=== PATIENT | female | born 1965 | race African-American/Black ===

== ENCOUNTER 2016-10-29 22:24 | Emergency (ER) | payer MEDICARE, OTHER ==
[2016-10-29] MEDS ORDERED: ACETAMINOPHEN/CODEINE #3 TABLET (BULK) As Ordered ONE (23:55)
[2016-10-29] MEDS ORDERED: AMOXICILLIN 500 MG CAP As Ordered ONE (23:55)
--- NOTE | 2016-10-30 00:53 | EDDOCDS ---
Physician Documentation [facility] Name: Chloé Harvey Age: 51 yrs Sex: Female : 1965 Arrival Date: 10/29/2016 Time: 22:24 Bed TR7 Private [facility]: [facility] Disposition: 10/29/16 23:48 Discharged to Home/Self Care. Impression: Fractured dental restorative material. - Condition is Stable. - Discharge Instructions: Dental Fracture. - Prescriptions for Amoxicillin 500 mg Oral Capsule - take 1 capsule by ORAL route every 8 hours for 10 days; 30 tablet. Tylenol- Codeine #3 300-30 mg Oral Tablet - take 2 tablets by ORAL route every 6 hours As needed MDD: 4 tabs; 26 tablet. - Medication Reconciliation, Local Pharmacy Hours, Dental Referral List form. - Follow up: [facility]; When: 2 - 3 days; Reason: Recheck today's complaints, Continuance of care. - Problem is new. - Symptoms have improved. Historical: - Allergies: Skelaxin (Rash); - Home Meds: 1. aspirin 81 mg Oral TbEC 1 tab nightly (Last dose: 10/28/2016) 2. [place] 5-325 mg Oral tab as needed (Last dose: 10/29/2016 20:00) 3. ibuprofen 200 mg Oral tab 2 tabs every 4-6 hours (Last dose: 10/29/2016 21:00) 4. atorvastatin oral 1 tab nightly (Last dose: 10/28/2016) 5. Lantus 45 units Sub-Q nightly (Last dose: 10/28/2016) 6. metformin 1,000 mg Oral tab daily (Last dose: 10/28/2016) 7. Vitamin D Oral 2000 unit daily (Last dose: 10/28/2016) 8. Zoloft 50 mg Oral tab 1 tab once daily (Last dose: 10/28/2016) - PMHx: Chronic Neck Pain; Diabetes - IDDM: uncontrolled; Hypercholesterolemia; Anxiety; Depression; - PSHx: Tubal ligation; - Social history: Smoking status: Patient states was never smoker of tobacco. No barriers to communication noted, The patient speaks fluent German, Speaks appropriately for age. - Family history: Not pertinent. - : The pt / caregiver states he / she is not on anticoagulants. Home medication list is obtained from the patient, [employer] import data. - Exposure Risk Screening:: None identified. 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 4 in. (162.56 cm); 22:26 Body Mass Index 27.81 (73.48 kg, 162.56 cm) bnb MDM: 23:44 Financial registration complete. zo 23:46 [facility] Payment Agreement was scanned into [employer] and attached to record. zo 23:53 Acetaminophen-Codeine, 4 pack- 300 mg-30 mg 1 packets PO once; Dispense with patient. ck7 Take per package instructions. ordered. 23:53 Amoxicillin 500 mg PO once ordered. ck7 Administered Medications: 23:45 Drug: Acetaminophen-Codeine, 4 pack- 1 packets [acetaminophen 300 mg-codeine 30 mg cz tablet (1 tabs)] {Co-Signature: km (Tatum Beckham RN).} Route: PO; 23:45 Drug: Amoxicillin 500 mg [amoxicillin 500 mg capsule (1 caps)] Route: PO; cz Signatures: Tatum Beckham, YOMAIRA RN kmg1 Daniele Stephens RN RN cz Shelley Smith Christopher, RPA-C RPA-Cck7 Tatum [email or web address] The chart was reviewed and I authenticate all verbal orders and agree with the evaluation and treatment provided.Attachments: 23:46 [facility] Payment Agreement zo MTDD
--- NOTE | 2016-10-30 00:53 | EDDOCDS ---
Nurse's Notes [facility] Name: Chloé Harvey Age: 51 yrs Sex: Female : 1965 Arrival Date: 10/29/2016 Time: 22:24 Bed TR7 Private [facility]: [facility] Diagnosis: Fractured dental restorative material Presentation: 10/29 22:30 Presenting complaint: Patient states: Chipped top left molar Sunday. Tonight having kmg1 severe pain. Adult Sepsis Screening: The patient does not have new or worsening altered mentation. Patient has a respiratory rate of greater than or equal to 22 (1 point). Systolic blood pressure is greater than 100. Patient has a qSOFA score of 1- Negative Sepsis Screen. Suicide/Homicide risk assessment- the patient denies having any suicidal and/or homicidal ideations and does not present with any other emotional, behavioral or mental health complaints. Status: Patient is not a customer service dispatcher or dependent. Transition of care: patient was not received from another setting of care. 22:30 Acuity: KIANNA Level 5 [facility] [place] 22:30 Method Of Arrival: Walkin/Carried/Asstd km Triage Assessment: 22:34 General: Appears uncomfortable, Behavior is appropriate for age, cooperative. Pain: km Location: upper left third molar Pain currently is 10 out of 10 on a pain scale. Quality of pain is described as sharp. HIV screening NA for this visit Offered previously. EENT: Reports pain in mouth. REGISTERED RADIATION THERAPIST: 22:34 LMP N/A - Post-menopause km Historical: - Allergies: Skelaxin (Rash); - Home Meds: 1. aspirin 81 mg Oral TbEC 1 tab nightly (Last dose: 10/28/2016) 2. [place] 5-325 mg Oral tab as needed (Last dose: 10/29/2016 20:00) 3. ibuprofen 200 mg Oral tab 2 tabs every 4-6 hours (Last dose: 10/29/2016 21:00) 4. atorvastatin oral 1 tab nightly (Last dose: 10/28/2016) 5. Lantus 45 units Sub-Q nightly (Last dose: 10/28/2016) 6. metformin 1,000 mg Oral tab daily (Last dose: 10/28/2016) 7. Vitamin D Oral 2000 unit daily (Last dose: 10/28/2016) 8. Zoloft 50 mg Oral tab 1 tab once daily (Last dose: 10/28/2016) - PMHx: Chronic Neck Pain; Diabetes - IDDM: uncontrolled; Hypercholesterolemia; Anxiety; Depression; - PSHx: Tubal ligation; - Social history: Smoking status: Patient states was never smoker of tobacco. No barriers to communication noted, The patient speaks fluent Colombian, Speaks appropriately for age. - Family history: Not pertinent. - : The pt / caregiver states he / she is not on anticoagulants. Home medication list is obtained from the patient, [employer] import data. - Exposure Risk Screening:: None identified. Screenin/16 00:50 Screening information is obtained from the patient. Fall risk: No risks identified. cz Assistance ADL's: requires no assistance with activities of daily living. Abuse/DV Screen: The patient / caregiver reports he/she is: not in a situation that causes fear, pain or injury. Nutritional screening: No deficits noted. home support is adequate. Assessment: 00:50 Reassessment: Patient appears in no apparent distress at this time. Vital Signs: 10/29 22:26 BP 154 / 67; Pulse 73; Resp 22; Temp 98.3; Pulse Ox 100% ; Weight 73.48 kg; Height 5 bnb ft. 4 in. (162.56 cm); 22:26 Body Mass Index 27.81 (73.48 kg, 162.56 cm) [facility] Vitals: 22:26 Log In Time: October 29, 2016 at 22:26. [facility] ED Course: 22:25 Patient visited by Chelsey Davis PCA. bnb 22:25 Patient moved to Waiting bnb 22:26 [facility], [facility] is Private Physician. bnb 22:28 Patient visited by Chelsey Davis PCA. bnb 22:31 Triage Initiated kmg1 22:36 Patient moved to Pre RCE cz 23:18 Patient moved to Triage 1 kmg1 23:32 [facility]C [facility] ck[facility] 23:32 Frank Sanchez DO is Attending Physician. ck7 23:32 Patient visited by Joaquin Sweet RPA-C. ck7 23:46 [facility] [place] Agreement was scanned into [employer] and attached to record. zo 23:47 [facility] is Referral Physician. ck7 23:57 Patient moved to 7 cz 10/30 00:50 The patient / caregiver is instructed regarding the plan of care and ED course. cz 00:50 No IV's were initiated during this patient's visit. No procedures done that require cz assistance. Administered Medications: 10/29 23:45 Drug: Acetaminophen-Codeine, 4 pack- 1 packets [acetaminophen 300 mg-codeine 30 mg cz tablet (1 tabs)] {Co-Signature: viki (Tatum Beckham RN).} Route: PO; 23:45 Drug: Amoxicillin 500 mg [amoxicillin 500 mg capsule (1 caps)] Route: PO; cz Order Results: There are currently no results for this order. Outcome: 23:48 Discharge ordered by Provider. [facility] 10/30 00:50 Discharge Assessment: Patient awake, alert and oriented x 3. No cognitive and/or cz functional deficits noted. Patient verbalized understanding of disposition instructions. patient administered narcotics - no. The following High Risk Discharge criteria are identified: None. Discharged to home ambulatory. Condition: stable. Discharge instructions given to patient, Instructed on discharge instructions, follow up and referral plans. medication usage, Demonstrated understanding of instructions, medications, Pt was receptive of discharge instructions/ teaching. Prescriptions given X 2. No special radiology studies were completed. Property :Personal belongings accompany Pt. 00:52 Patient left the ED. cz Signatures: Tatum Beckham, RN RN kmg1 Daniele Stephens, YOMAIRA RN Shelley Black Christopher, RPA-C RPA-Cck7 Chelsey Davis, BUSINESS INSURANCE AGENT BUSINESS INSURANCE AGENT bnb Tatum Beckham RN kmg1 MTDD
--- NOTE | 2016-11-01 01:53 | EDDOCDS ---
Physician Documentation [facility] Name: Chloé Harvey Age: 51 yrs Sex: Female : 1965 Arrival Date: 10/29/2016 Time: 22:24 Bed TR7 Private MD: [facility] Disposition: 10/29/16 23:48 Discharged to Home/Self Care. Impression: Fractured dental restorative material. - Condition is Stable. - Discharge Instructions: Dental Fracture. - Prescriptions for Amoxicillin 500 mg Oral Capsule - take 1 capsule by ORAL route every 8 hours for 10 days; 30 tablet. Tylenol- Codeine #3 300-30 mg Oral Tablet - take 2 tablets by ORAL route every 6 hours As needed MDD: 4 tabs; 26 tablet. - Medication Reconciliation, Local Pharmacy Hours, Dental Referral List form. - Follow up: [facility]; When: 2 - 3 days; Reason: Recheck today's complaints, Continuance of care. - Problem is new. - Symptoms have improved. Historical: - Allergies: Skelaxin (Rash); - Home Meds: 1. aspirin 81 mg Oral TbEC 1 tab nightly (Last dose: 10/28/2016) 2. [place] 5-325 mg Oral tab as needed (Last dose: 10/29/2016 20:00) 3. ibuprofen 200 mg Oral tab 2 tabs every 4-6 hours (Last dose: 10/29/2016 21:00) 4. atorvastatin oral 1 tab nightly (Last dose: 10/28/2016) 5. Lantus 45 units Sub-Q nightly (Last dose: 10/28/2016) 6. metformin 1,000 mg Oral tab daily (Last dose: 10/28/2016) 7. Vitamin D Oral 2000 unit daily (Last dose: 10/28/2016) 8. Zoloft 50 mg Oral tab 1 tab once daily (Last dose: 10/28/2016) - PMHx: Chronic Neck Pain; Diabetes - IDDM: uncontrolled; Hypercholesterolemia; Anxiety; Depression; - PSHx: Tubal ligation; - Social history: Smoking status: Patient states was never smoker of tobacco. No barriers to communication noted, The patient speaks fluent Malay, Speaks appropriately for age. - Family history: Not pertinent. - : The pt / caregiver states he / she is not on anticoagulants. Home medication list is obtained from the patient, [employer] import data. - Exposure Risk Screening:: None identified. 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 4 in. (162.56 cm); 22:26 Body Mass Index 27.81 (73.48 kg, 162.56 cm) bnb MDM: 23:44 Financial registration complete. zo 23:46 [facility] Payment Agreement was scanned into [employer] and attached to record. zo 23:53 Acetaminophen-Codeine, 4 pack- 300 mg-30 mg 1 packets PO once; Dispense with patient. ck7 Take per package instructions. ordered. 23:53 Amoxicillin 500 mg PO once ordered. ck7 10/30 12:02 T-Sheet-- Draft Copy was scanned into [employer] and attached to record. gb Administered Medications: 10/29 23:45 Drug: Acetaminophen-Codeine, 4 pack- 1 packets [acetaminophen 300 mg-codeine 30 mg cz tablet (1 tabs)] {Co-Signature: kmg1 (Tatum Beckham RN).} Route: PO; 23:45 Drug: Amoxicillin 500 mg [amoxicillin 500 mg capsule (1 caps)] Route: PO; cz Signatures: Tatum Beckham, RN RN kmg1 Daniele Stephens RN RN cz Soraida Vega, Reg Reg gb Shelley Smith Christopher, RPA-C RPA-Cck7 Tatum [email or web address] The chart was reviewed and I authenticate all verbal orders and agree with the evaluation and treatment provided.Attachments: :46 [facility] Payment Agreement zo 10/30 12:02 T-Sheet-- Draft Copy gb Chart Complete MTDD
--- NOTE | 2016-11-01 01:53 | EDDOCDS ---
Physician Documentation [facility] Name: Chloé Harvey Age: 51 yrs Sex: Female : 1965 Arrival Date: 10/29/2016 Time: 22:24 Bed TR7 Private MD: [facility] Disposition: 10/29/16 23:48 Discharged to Home/Self Care. Impression: Fractured dental restorative material. - Condition is Stable. - Discharge Instructions: Dental Fracture. - Prescriptions for Amoxicillin 500 mg Oral Capsule - take 1 capsule by ORAL route every 8 hours for 10 days; 30 tablet. Tylenol- Codeine #3 300-30 mg Oral Tablet - take 2 tablets by ORAL route every 6 hours As needed MDD: 4 tabs; 26 tablet. - Medication Reconciliation, Local Pharmacy Hours, Dental Referral List form. - Follow up: [facility]; When: 2 - 3 days; Reason: Recheck today's complaints, Continuance of care. - Problem is new. - Symptoms have improved. Historical: - Allergies: Skelaxin (Rash); - Home Meds: 1. aspirin 81 mg Oral TbEC 1 tab nightly (Last dose: 10/28/2016) 2. [place] 5-325 mg Oral tab as needed (Last dose: 10/29/2016 20:00) 3. ibuprofen 200 mg Oral tab 2 tabs every 4-6 hours (Last dose: 10/29/2016 21:00) 4. atorvastatin oral 1 tab nightly (Last dose: 10/28/2016) 5. Lantus 45 units Sub-Q nightly (Last dose: 10/28/2016) 6. metformin 1,000 mg Oral tab daily (Last dose: 10/28/2016) 7. Vitamin D Oral 2000 unit daily (Last dose: 10/28/2016) 8. Zoloft 50 mg Oral tab 1 tab once daily (Last dose: 10/28/2016) - PMHx: Chronic Neck Pain; Diabetes - IDDM: uncontrolled; Hypercholesterolemia; Anxiety; Depression; - PSHx: Tubal ligation; - Social history: Smoking status: Patient states was never smoker of tobacco. No barriers to communication noted, The patient speaks fluent Kazakh, Speaks appropriately for age. - Family history: Not pertinent. - : The pt / caregiver states he / she is not on anticoagulants. Home medication list is obtained from the patient, [employer] import data. - Exposure Risk Screening:: None identified. UPPER CASER: 10/29 22:34 LMP N/A - Post-menopause kmg1 Vital Signs: 22:26 BP 154 / 67; Pulse 73; Resp 22; Temp 98.3; Pulse Ox 100% ; Weight 73.48 kg / 162 lbs; bnb Height 5 ft. 4 in. (162.56 cm); 22:26 Body Mass Index 27.81 (73.48 kg, 162.56 cm) bnb MDM: 23:44 Financial registration complete. zo 23:46 [facility] Payment Agreement was scanned into [employer] and attached to record. zo 23:53 Acetaminophen-Codeine, 4 pack- 300 mg-30 mg 1 packets PO once; Dispense with patient. ck7 Take per package instructions. ordered. 23:53 Amoxicillin 500 mg PO once ordered. ck7 10/30 12:02 T-Sheet-- Draft Copy was scanned into [employer] and attached to record. gb Administered Medications: 10/29 23:45 Drug: Acetaminophen-Codeine, 4 pack- 1 packets [acetaminophen 300 mg-codeine 30 mg cz tablet (1 tabs)] {Co-Signature: kmg1 (Tatum Beckham RN).} Route: PO; 23:45 Drug: Amoxicillin 500 mg [amoxicillin 500 mg capsule (1 caps)] Route: PO; cz Signatures: Tatum Beckham, RN RN kmg1 Daniele Stephens RN RN cz Soraida Vega, Reg Reg gb Shelley Smith Christopher, RPA-C RPA-Cck7 Tatum [email or web address] The chart was reviewed and I authenticate all verbal orders and agree with the evaluation and treatment provided.Attachments: :46 [facility] Payment Agreement zo 10/30 12:02 T-Sheet-- Draft Copy gb Chart Complete MTDD
--- NOTE | 2016-11-01 01:53 | EDDOCDS ---
Nurse's Notes [facility] Name: Chloé Harvey Age: 51 yrs Sex: Female : 1965 Arrival Date: 10/29/2016 Time: 22:24 Bed TR7 Private MD: [facility] Diagnosis: Fractured dental restorative material Presentation: 10/29 22:30 Presenting complaint: Patient states: Chipped top left molar Sunday. Tonight having kmg1 severe pain. Adult Sepsis Screening: The patient does not have new or worsening altered mentation. Patient has a respiratory rate of greater than or equal to 22 (1 point). Systolic blood pressure is greater than 100. Patient has a qSOFA score of 1- Negative Sepsis Screen. Suicide/Homicide risk assessment- the patient denies having any suicidal and/or homicidal ideations and does not present with any other emotional, behavioral or mental health complaints. Status: Patient is not a food service or dependent. Transition of care: patient was not received from another setting of care. 22:30 Acuity: KIANNA Level 5 [facility] [place]:30 Method Of Arrival: Walkin/Carried/Asstd km Triage Assessment: 22:34 General: Appears uncomfortable, Behavior is appropriate for age, cooperative. Pain: km Location: upper left third molar Pain currently is 10 out of 10 on a pain scale. Quality of pain is described as sharp. HIV screening NA for this visit Offered previously. EENT: Reports pain in mouth. 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 aspirin 81 mg Oral TbEC 1 tab nightly (Last dose: 10/28/2016) 2. [place] 5-325 mg Oral tab as needed (Last dose: 10/29/2016 20:00) 3. ibuprofen 200 mg Oral tab 2 tabs every 4-6 hours (Last dose: 10/29/2016 21:00) 4. atorvastatin oral 1 tab nightly (Last dose: 10/28/2016) 5. Lantus 45 units Sub-Q nightly (Last dose: 10/28/2016) 6. metformin 1,000 mg Oral tab daily (Last dose: 10/28/2016) 7. Vitamin D Oral 2000 unit daily (Last dose: 10/28/2016) 8. Zoloft 50 mg Oral tab 1 tab once daily (Last dose: 10/28/2016) - PMHx: Chronic Neck Pain; Diabetes - IDDM: uncontrolled; Hypercholesterolemia; Anxiety; Depression; - PSHx: Tubal ligation; - Social history: Smoking status: Patient states was never smoker of tobacco. No barriers to communication noted, The patient speaks fluent Faroese, Speaks appropriately for age. - Family history: Not pertinent. - : The pt / caregiver states he / she is not on anticoagulants. Home medication list is obtained from the patient, [employer] import data. - Exposure Risk Screening:: None identified. Screenin/16 00:50 Screening information is obtained from the patient. Fall risk: No risks identified. cz Assistance ADL's: requires no assistance with activities of daily living. Abuse/DV Screen: The patient / caregiver reports he/she is: not in a situation that causes fear, pain or injury. Nutritional screening: No deficits noted. home support is adequate. Assessment: 00:50 Reassessment: Patient appears in no apparent distress at this time. Vital Signs: 10/29 22:26 BP 154 / 67; Pulse 73; Resp 22; Temp 98.3; Pulse Ox 100% ; Weight 73.48 kg; Height 5 bnb ft. 4 in. (162.56 cm); 22:26 Body Mass Index 27.81 (73.48 kg, 162.56 cm) [facility] Vitals: 22:26 Log In Time: October 29, 2016 at 22:26. [facility] ED Course: 22:25 Patient visited by Chelsey Davis PCA. bnb 22:25 Patient moved to Waiting bnb 22:26 [facility], Education [facility] is Private Physician. bnb 22:28 Patient visited by Chelsey Davis PCA. bnb 22:31 Triage Initiated kmg1 22:36 Patient moved to Pre RCE cz 23:18 Patient moved to Triage 1 kmg1 23:32 Joaquin Sweet RPA-C [facility] ck7 23:32 Frank Sanchez DO is Attending Physician. ck7 23:32 Patient visited by Joaquin Sweet RPA-C. ck7 23:46 [facility] [place] Agreement was scanned into [employer] and attached to record. zo 23:47 [facility] is Referral Physician. ck7 23:57 Patient moved to TR7 10/30 00:50 The patient / caregiver is instructed regarding the plan of care and ED course. cz 00:50 No IV's were initiated during this patient's visit. No procedures done that require cz assistance. 12:02 T-Sheet-- Draft Copy was scanned into [employer] and attached to record. gb Administered Medications: 10/29 23:45 Drug: Acetaminophen-Codeine, 4 pack- 1 packets [acetaminophen 300 mg-codeine 30 mg cz tablet (1 tabs)] {Co-Signature: kmg1 (Tatum Beckham RN).} Route: PO; 23:45 Drug: Amoxicillin 500 mg [amoxicillin 500 mg capsule (1 caps)] Route: PO; cz Order Results: There are currently no results for this order. Outcome: 23:48 Discharge ordered by Provider. [facility] 10/30 00:50 Discharge Assessment: Patient awake, alert and oriented x 3. No cognitive and/or cz functional deficits noted. Patient verbalized understanding of disposition instructions. patient administered narcotics - no. The following High Risk Discharge criteria are identified: None. Discharged to home ambulatory. Condition: stable. Discharge instructions given to patient, Instructed on discharge instructions, follow up and referral plans. medication usage, Demonstrated understanding of instructions, medications, Pt was receptive of discharge instructions/ teaching. Prescriptions given X 2. No special radiology studies were completed. Property :Personal belongings accompany Pt. 00:52 Patient left the ED. cz Signatures: Tatum Beckham, YOMAIRA RN kmg1 Daniele Stephens, YOMAIRA RN Soraida Garsia, Anastacio Reg Shelley Troy Christopher, RPA-C RPA-Cck7 Chelsey Davis, NASH PIPE INSTALLER bnb Tatum Beckham RN kmg1 Chart Complete MTDD
== END 2016-10-30 00:52 | disposition home or self-care (01) ==
LOC: M ED 22:24
DX: K08.539 Fractured dental restorative material, unspecified (principal); M54.2 Cervicalgia; E11.65 Type 2 diabetes mellitus with hyperglycemia; E78.00 Pure hypercholesterolemia, unspecified; F41.9 Anxiety disorder, unspecified; F32.9 Major depressive disorder, single episode, unspecified; Z79.84 Long term (current) use of oral hypoglycemic drugs; Z79.4 Long term (current) use of insulin; Z79.82 Long term (current) use of aspirin; Z79.899 Other long term (current) drug therapy; Z88.8 Allergy status to other drugs, medicaments and biological substances

== ENCOUNTER → 2016-11-06 | Outpatient (CLI) | payer MEDICARE, OTHER ==
[~2016-11-06] MED LIST: LIDOCAINE 1% MDV 20ML VIAL As Ordered ONE
--- NOTE | 2016-11-06 11:22 | REP ---
Digital diagnostic unilateral right breast mammography with CAD: Two views. History: Marker clip placement views post ultrasound-guided needle biopsy. Comparison mammography is from October 02, 2016, September 21, 2016. Findings: The marker clip is in good position adjacent to the nodular 1.1 cm density at 12 o'clock in the right breast. No significant breast hematoma is seen. No other change mammographically. Impression: Marker clip in good position. Signed by Henry Minor MD 11/06/2016 01:42 P
--- NOTE | 2016-11-06 12:00 | REP ---
FOCUSED RIGHT BREAST SONOGRAPHY: HISTORY: Palpable area on clinician breast exam subcutaneous nodule at 1 o'clock position 8 to 9 cm above the areola. Evaluate with ultrasound. The patient is separately referred for a needle biopsy of a previously identified ultrasound target at 12 o'clock position in the same right breast. SONOGRAPHIC FINDINGS: Scanning of the right breast from 12 o'clock position to the 2 o'clock position in the region of the palpable abnormality shows no sonographic abnormality. Slightly heterogeneous fibroglandular background echotexture is seen. IMPRESSION: BIRADS category 1 negative focused right breast ultrasound. Please note that a separately identified suspicious lesion is previously seen and is the target for ultrasound-guided needle biopsy also done on this date. Signed by Henry Minor MD 11/06/2016 01:43 P
--- NOTE | 2016-11-06 14:11 | REP ---
ULTRASOUND GUIDED RIGHT BREST BIOPSY: The procedure was performed under the direct supervision of Dr. Minor. The patient has a history of a hypoechoic slightly irregular shaped nodule at the 12 o'clock position measuring 0.7 x 0.7 x 0.6 cm seen on a previous ultrasound dated 10/02/2016. The risks and benefits of the procedure were explained to the patient and informed consent was obtained. The right breast nodule was localized using ultrasound guidance. The skin was prepped and draped in a sterile fashion. 1% Xylocaine was used as a local anesthetic. Using ultrasound guidance a 13 gauge suction assisted Mammotome needle was inserted and five core biopsy samples were obtained. A marker clip was placed at the biopsy site. The patient tolerated the procedure well and there were no immediate complications. After the appropriate amount of monitored convalescence the patient was discharged from the department. Reviewed by CHANELLE Alonzo 11/06/2016 05:17 PEdited and Signed by Henry iMnor MD 11/06/2016 05:34 P
== END ==
LOC: M RADPRO 09:22
PROVIDERS: ATTEND Surgery
DX: D24.1 Benign neoplasm of right breast (principal); E78.5 Hyperlipidemia, unspecified; E11.42 Type 2 diabetes mellitus with diabetic polyneuropathy; F32.9 Major depressive disorder, single episode, unspecified; F41.9 Anxiety disorder, unspecified; M62.81 Muscle weakness (generalized); Z86.73 Personal history of transient ischemic attack (TIA), and cerebral infarction without residual deficits; Z79.82 Long term (current) use of aspirin; Z79.4 Long term (current) use of insulin; Z79.84 Long term (current) use of oral hypoglycemic drugs; Z79.899 Other long term (current) drug therapy
CPT/HCPCS: 19083; 88305; G0206

== ENCOUNTER 2017-02-28 18:27 | Emergency (ER) | payer MEDICARE, MEDICAID ==
[~2017-02-28] VITALS: Ht 162.6 cm; Wt 70.8 kg
[2017-02-28] MEDS ORDERED: ASPI81CH PO (18:35)
[2017-02-28] MEDS ORDERED: GABA-283 PO (18:35)
[2017-02-28] MEDS ORDERED: VITA200015 PO (18:35)
[2017-02-28] MEDS ORDERED: CITA10TA5 PO (18:35)
[2017-02-28] MEDS ORDERED: LANTINJ4 SQ (18:35)
[2017-02-28] MEDS ORDERED: HYDR-3713 PO (18:35)
[2017-02-28] MEDS ORDERED: METF1000 PO (18:35)
[2017-02-28] MEDS ORDERED: ATOR1TAB21 PO (18:37)
[2017-02-28 20:21] LABS: BASO # 0.1 K/mm3 (0.0-0.2); BASO % 0.6 % (0.0-1.0); EOS # 0.3 K/mm3 (0.0-0.50); EOS % 3.1 % (0.0-3.0); LARGE UNSTAINED CELL # 0.3 K/mm3 (0.0-0.4); LARGE UNSTAINED CELL % 2.5 % (0.0-4.0); LYMPH # 4.3 K/mm3 (1.5-4.5); LYMPH % 38.6 % (24.0-44.0); MEAN CORPUSCULAR HEMOGLOBIN 28.5 pg (27.0-33.0); MEAN CORPUSCULAR HGB CONC 31.9 g/dl (32.0-36.5); MEAN CORPUSCULAR VOLUME 89.4 fl (80.0-96.0); MONO # 0.5 K/mm3 (0.0-0.8); MONO % 4.8 % (0.0-5.0); NEUTROPHILS # 5.3 K/mm3 (1.8-7.7); NEUTROPHILS % 50.5 % (36.0-66.0); PLATELET COUNT, AUTOMATED 354 k/mm3 (150-450); RED CELL DISTRIBUTION WIDTH 13.2 % (11.5-14.5); WHITE BLOOD COUNT 10.4 K/mm3 (4.0-10.0)
--- NOTE | 2017-02-28 20:50 | REPUSA ---
CLINICAL HISTORY: Pain. COMMENTS: Real time sonography with duplex doppler was performed with attention to the major deep venous struct ures. Evaluation reveals the common femoral, superficial femoral, popliteal and posterior tibial veins to be completely compressible without intraluminal thrombus. There is normal spontaneous phasic flow and augmentation in all deep veins. The greater saphenous/common femoral vein junction is patent. IMPRESSION: No evidence of DVT. Thank you for your kind referral of this patient.
[2017-02-28 21:56] LABS: ANION GAP 5 MEQ/L (8-16); BLOOD UREA NITROGEN 11 MG/DL (7-18); CARBON DIOXIDE LEVEL 31 MEQ/L (21-32); CHLORIDE LEVEL 106 MEQ/L (98-107); CREATININE FOR GFR 0.93 MG/DL (0.55-1.02); GLOMERULAR FILTRATION RATE > 60.0 (>51); GLUCOSE, FASTING 251 MG/DL (70-105); POTASSIUM SERUM 4.1 MEQ/L (3.5-5.1); SODIUM LEVEL 142 MEQ/L (136-145)
[2017-02-28] MEDS ORDERED: NS 1,000 ML IV ONE (22:15)
[2017-02-28] MEDS ORDERED: ISOVUE-370 76% 100ML VIAL (Q9967) As Ordered ONE (22:59)
[2017-02-28] MEDS ORDERED: ACETAMINOPHEN TAB 650MG DOSE (2X325MG) PO ONE (23:00)
--- NOTE | 2017-02-28 23:40 | REPUSA ---
CT angiogram of the chest Clinical statement: Chest pain and shortness of breath. Technique: Multiple axial CT images were obtained from the thoracic inlet through the upper abdomen a fter a bolus administration of nonionic intravenous contrast. Coronal and sagittal reconstructions we re also obtained. Comparison: 01/27/2013. Findings: The pulmonary arteries are well-opacified with contrast, with no intraluminal filling defec ts to suggest embolism. The thoracic aorta is unremarkable. Thyroid gland is within normal limits. Th ere is no thoracic lymphadenopathy. There are no pericardial or pleural effusions. The lungs are bob r. Limited imaging of the upper abdomen is unremarkable. There are no suspicious osseous lesions. Impression: Unremarkable CT examination of the chest. No evidence of pulmonary embolism.
[2017-02-28 23:59] VITALS: BP 121/71
--- NOTE | 2017-03-01 08:17 | ECGEPIP ---
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 Order Number: [id number] Reading MD: Susan Pichardo Measurements Intervals [place] Rate: 74 P: 6 GA: 128 QRS: -15 QRSD: 92 T: -1 QT: 400 QTc: 446 Interpretive Statements SINUS RHYTHM MODERATE VOLTAGE CRITERIA FOR LVH, CONSIDER NORMAL VARIANT INCREASED RATE 11/17/13 Electronically Signed On 03-01-2017 8:17:41 EDT by Susan Pichardo
== END 2017-03-01 00:06 | disposition home or self-care (01) ==
LOC: M ED 19:42
DX: M54.32 Sciatica, left side (principal); G89.29 Other chronic pain; E11.9 Type 2 diabetes mellitus without complications; Z79.4 Long term (current) use of insulin; Z79.82 Long term (current) use of aspirin; Z79.899 Other long term (current) drug therapy; Z87.891 Personal history of nicotine dependence
CPT/HCPCS: 36415; 71275; 80048; 85025; 85379; 93005; 93971; 99284; Q9967

== ENCOUNTER → 2017-03-02 | Outpatient (REF) | payer MEDICARE, MEDICAID ==
[~2017-03-02] MED LIST changes: +ASPI81CH PO; +ATOR1TAB21 PO; +CITA10TA5 PO; +GABA-283 PO; +HYDR-3713 PO; +LANTINJ4 SQ; -LIDOCAINE 1% MDV 20ML VIAL As Ordered ONE; +METF1000 PO; +VITA200015 PO
== END ==
LOC: M SFHCPLAZ 13:51
DX: E11.9 Type 2 diabetes mellitus without complications (principal); E78.5 Hyperlipidemia, unspecified
CPT/HCPCS: 36415; 80061; 82043; 83036; G0463

== ENCOUNTER → 2017-03-06 | Outpatient (REF) | payer MEDICARE, MEDICAID | LOC: M SFHCPLAZ 10:07 | PROVIDERS: ATTEND Family Medicine | DX: A59.9 Trichomoniasis, unspecified (principal); Z79.899 Other long term (current) drug therapy ==

== ENCOUNTER → 2017-04-26 | Outpatient (CLI) | payer MEDICARE, MEDICAID ==
[~2017-04-26] MED LIST changes: +INSUH10VL SC; +KETO10TAB PO; +LOSA25TA8 PO; -METF1000 PO; +METF10004 PO; +NAPR500T3 PO; +PRED20TA PO; +ROBA500T PO
[2017-04-26 12:00] LABS: TOTAL PROTEIN 7.3 GM/DL (6.4-8.2)
[2017-04-26 12:02] LABS: VITAMIN B12 LEVEL 687 PG/ML
[2017-04-30 10:30] LABS: ALBUMIN 4.36 GM/DL (3.29-5.55); ALBUMIN % 59.7 % (55.8-66.1); GAMMA GLOBULIN % 14.5 % (11.1-18.8)
== END ==
LOC: M LAB 10:38
PROVIDERS: ATTEND Psychiatry & Neurology Neurology
DX: E11.9 Type 2 diabetes mellitus without complications (principal); G62.9 Polyneuropathy, unspecified; T56.0X4A Toxic effect of lead and its compounds, undetermined, initial encounter; T56.894A Toxic effect of other metals, undetermined, initial encounter; X58.XXXA Exposure to other specified factors, initial encounter; Y92.9 Unspecified place or not applicable

== ENCOUNTER 2017-05-03 21:46 | Emergency (ER) | payer MEDICARE, MEDICAID ==
[~2017-05-03] VITALS: Ht 162.6 cm; Wt 72.7 kg
[~2017-05-03 21:46] MED LIST changes: -INSUH10VL SC; -KETO10TAB PO; -LOSA25TA8 PO; -NAPR500T3 PO; -PRED20TA PO; -ROBA500T PO
[2017-05-03 21:47] VITALS: BP 117/68
[2017-05-03] MEDS ORDERED: INSUH10VL SC (22:01)
[2017-05-03] MEDS ORDERED: ASPIRIN 325 MG TAB PO ONE (22:30)
[2017-05-03] MEDS ORDERED: KETOROLAC 30 MG/ML VIAL (J1885) IV ONE (22:30)
[2017-05-03 23:04] LABS: BASO % 0.5 % (0.0-1.0); EOS # 0.2 K/mm3 (0.0-0.50); EOS % 2.1 % (0.0-3.0); LARGE UNSTAINED CELL # 0.2 K/mm3 (0.0-0.4); LARGE UNSTAINED CELL % 2.5 % (0.0-4.0); LYMPH # 3.1 K/mm3 (1.5-4.5); LYMPH % 34.8 % (24.0-44.0); MEAN CORPUSCULAR HEMOGLOBIN 29.1 pg (27.0-33.0); MEAN CORPUSCULAR HGB CONC 32.7 g/dl (32.0-36.5); MEAN CORPUSCULAR VOLUME 88.8 fl (80.0-96.0); MONO # 0.5 K/mm3 (0.0-0.8); MONO % 5.4 % (0.0-5.0); NEUTROPHILS # 4.6 K/mm3 (1.8-7.7); NEUTROPHILS % 54.8 % (36.0-66.0); PLATELET COUNT, AUTOMATED 344 k/mm3 (150-450); RED CELL DISTRIBUTION WIDTH 13.6 % (11.5-14.5); WHITE BLOOD COUNT 8.3 K/mm3 (4.0-10.0)
[2017-05-03 23:12] LABS: INR 0.92
[2017-05-03 23:30] LABS: ANION GAP 4 MEQ/L (8-16); BLOOD UREA NITROGEN 11 MG/DL (7-18); CALCIUM LEVEL 9.2 MG/DL (8.5-10.1); CARBON DIOXIDE LEVEL 30 MEQ/L (21-32); CHLORIDE LEVEL 110 MEQ/L (98-107); CREATININE FOR GFR 0.95 MG/DL (0.55-1.02); GLOMERULAR FILTRATION RATE > 60.0 (>51); GLUCOSE, FASTING 98 MG/DL (70-105); POTASSIUM SERUM 4.1 MEQ/L (3.5-5.1); SODIUM LEVEL 144 MEQ/L (136-145)
[2017-05-04] MEDS ORDERED: MORPHINE 4 MG/ML 1ML SYRINGE IV ONE (02:30)
[2017-05-04] MEDS ORDERED: ISOVUE-370 76% 100ML VIAL (Q9967) As Ordered ONE (02:32)
--- NOTE | 2017-05-04 03:10 | REPUSA ---
CLINICAL HISTORY: Dyspnea, elevated d-dimers, exclude PE. TECHNIQUE: Multiple incremental axial, coronal and oblique images are obtained from the thoracic inle t to the upper abdomen. Intravenous contrast material was administered as per pulmonary embolism prot ocol. COMMENTS: There is excellent opacification of pulmonary arterial system without evidence for pulmonary embolism . Aorta is of normal caliber without evidence for dissection or aneurysm. There is no evidence of pleural or parenchymal mass. There are no pleural effusions. There is no evid ence of hilar or mediastinal lymphadenopathy. The heart and great vessels are within normal limits. B ilateral basilar atelectatic pulmonary changes. Images of the upper abdomen demonstrate no evidence of adrenal mass. The bony structures are free of lytic or blastic lesions. IMPRESSION: No evidence for pulmonary embolism. Bilateral basilar atelectatic pulmonary changes. No change from the prior exam of 02/28/2017. Thank you for your kind referral of this patient.
[2017-05-04] MEDS ORDERED: KETO10TAB PO (03:46)
--- NOTE | 2017-05-04 07:39 | ECGEPIP ---
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
--- NOTE | 2017-05-04 07:40 | ECGEPIP ---
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
--- NOTE | 2017-05-04 07:54 | REP ---
PA and lateral chest: Comparison is 04/26/2016. The lung cheney are clear. The cardiac size is normal The ivanna, mediastinum, and bony thorax are unremarkable. Impression: Negative PA and lateral chest. There is no interval change. Signed by Christopher Johnson MD 05/04/2017 07:46 A
== END 2017-05-04 04:03 | disposition home or self-care (01) ==
LOC: M ED 21:46
DX: M94.0 Chondrocostal junction syndrome [Tietze] (principal); E11.9 Type 2 diabetes mellitus without complications; I10 Essential (primary) hypertension; E78.5 Hyperlipidemia, unspecified; Z88.8 Allergy status to other drugs, medicaments and biological substances; Z79.82 Long term (current) use of aspirin; Z79.4 Long term (current) use of insulin; Z79.899 Other long term (current) drug therapy; Z79.84 Long term (current) use of oral hypoglycemic drugs
CPT/HCPCS: 71020; 71275; 80048; 82550; 82553; 84484; 85025; 85610; 85730; 93005; 96374; 96375; 99283; J1885; Q9967

== ENCOUNTER 2017-08-08 15:00 | Emergency (ER) | payer MEDICARE, MEDICAID ==
[~2017-08-08] VITALS: Ht 162.6 cm; Wt 75.0 kg
[~2017-08-08 15:00] MED LIST changes: +INSUH10VL SC; +KETO10TAB PO
[2017-08-08] MEDS ORDERED: LOSA25TA8 PO (15:20)
[2017-08-08] MEDS ORDERED: ACETAMINOPHEN 325 MG TAB PO ONE (16:15)
[2017-08-08] MEDS ORDERED: NAPR500T3 PO (16:21)
[2017-08-08] MEDS ORDERED: ROBA500T PO (16:21)
[2017-08-08] MEDS ORDERED: PRED20TA PO (16:21)
--- NOTE | 2017-08-08 16:48 | REP ---
AP pelvis and left hip: AP pelvis: There are no comparisons. Mineralization is normal. The sacroiliac articulations and hip articulations are unremarkable. There is a calcification in the pelvis on the left, nonspecific, ureteral versus phlebolith. Impression: Pelvic calcification on the left, otherwise negative AP pelvis. Left hip two views: Mineralization and joint space are normal. There is no femoral head deformity. No calcifications or foreign bodies. No fracture or dislocation. Essentially negative left hip. If symptoms persist or worsen, consider MRI. Signed by Christopher Johnson MD 08/08/2017 04:37 P
[2017-08-08 17:10] VITALS: BP 130/70
== END 2017-08-08 17:19 | disposition home or self-care (01) ==
LOC: M ED 15:00
DX: M76.32 Iliotibial band syndrome, left leg (principal); E11.9 Type 2 diabetes mellitus without complications; I25.10 Atherosclerotic heart disease of native coronary artery without angina pectoris; I10 Essential (primary) hypertension; E78.5 Hyperlipidemia, unspecified; M54.9 Dorsalgia, unspecified; F41.9 Anxiety disorder, unspecified; F32.9 Major depressive disorder, single episode, unspecified; Z86.73 Personal history of transient ischemic attack (TIA), and cerebral infarction without residual deficits; Z87.891 Personal history of nicotine dependence; Z79.82 Long term (current) use of aspirin; Z79.4 Long term (current) use of insulin; Z79.899 Other long term (current) drug therapy; Z88.8 Allergy status to other drugs, medicaments and biological substances

== ENCOUNTER → 2017-09-16 | Outpatient (CLI) | payer MEDICARE, MEDICAID ==
[~2017-09-16] MED LIST changes: +LOSA25TA8 PO; +NAPR500T3 PO; +PRED20TA PO; +ROBA500T PO
[2017-09-16 17:56] LABS: ALBUMIN 3.7 GM/DL (3.2-5.2); ALBUMIN/GLOBULIN RATIO 1.16 (1.00-1.93); ALKALINE PHOSPHATASE 117 U/L (45-117); ALT/SGPT 25 U/L (12-78); ANION GAP 4 MEQ/L (8-16); AST/SGOT 19 U/L (7-37); BILIRUBIN,TOTAL 0.2 MG/DL (0.2-1.0); BLOOD UREA NITROGEN 10 MG/DL (7-18); CALCIUM LEVEL 9.1 MG/DL (8.5-10.1); CARBON DIOXIDE LEVEL 31 MEQ/L (21-32); CHLORIDE LEVEL 107 MEQ/L (98-107); CREATININE FOR GFR 1.05 MG/DL (0.55-1.02); GLOMERULAR FILTRATION RATE > 60.0 (>51); GLUCOSE, FASTING 285 MG/DL (70-105); POTASSIUM SERUM 4.9 MEQ/L (3.5-5.1); SODIUM LEVEL 142 MEQ/L (136-145); TOTAL PROTEIN 6.9 GM/DL (6.4-8.2)
[2017-09-16 18:16] LABS: BASO # 0.1 10^3/uL (0.0-0.2); BASO % 0.7 % (0.0-1.0); EOS # 0.1 10^3/uL (0.0-0.50); EOS % 1.9 % (0.0-3.0); IMMATURE GRANULOCYTE % 0.3 % (0-0); LYMPH # 2.5 10^3/uL (1.5-4.5); LYMPH % 36.4 % (24.0-44.0); MEAN CORPUSCULAR HEMOGLOBIN 29.1 pg (27.0-33.0); MEAN CORPUSCULAR HGB CONC 32.2 g/dl (32.0-36.5); MEAN CORPUSCULAR VOLUME 90.4 fl (80.0-96.0); MONO # 0.6 10^3/uL (0.0-0.8); NEUTROPHILS # 3.6 10^3/uL (1.8-7.7); NEUTROPHILS % 51.7 % (36.0-66.0); PLATELET COUNT, AUTOMATED 294 10^3/uL (150-450); RED CELL DISTRIBUTION WIDTH 13.5 % (11.5-14.5); WHITE BLOOD COUNT 6.9 10^3/uL (4.0-10.0)
== END ==
LOC: M WUC 12:19
PROVIDERS: ATTEND Physician Assistant
DX: L04.0 Acute lymphadenitis of face, head and neck (principal)

== ENCOUNTER → 2017-09-21 | Outpatient (REF) | payer MEDICARE, MEDICAID ==
[~2017-09-21] MED LIST changes: +ALEV220C2 PO; +AMOX400S2; +ATOR80TA59 PO; +AUGM875T28 PO; +CIPR-249 PO; +CIPRODEX AD; +CLOB0.0548 TOP; +INSULANT SC; +MECL-68 PO; +NORC1TAB4 PO; +PANT40TA2 PO; +VITA100066 PO; +[UNRECOGNIZED DRUG - CODE]; +[UNRECOGNIZED DRUG - CODE] PO
== END ==
LOC: M LAB REF 17:20
PROVIDERS: ATTEND Physical Medicine & Rehabilitation
DX: M47.26 Other spondylosis with radiculopathy, lumbar region (principal)

== ENCOUNTER 2017-09-22 11:04 | Emergency (ER) | payer MEDICARE, MEDICAID ==
[~2017-09-22] VITALS: Ht 162.6 cm; Wt 72.6 kg
[~2017-09-22 11:04] MED LIST changes: -ALEV220C2 PO; -AMOX400S2; -ATOR80TA59 PO; -AUGM875T28 PO; -CIPR-249 PO; -CIPRODEX AD; -CLOB0.0548 TOP; -INSULANT SC; -MECL-68 PO; -NORC1TAB4 PO; -PANT40TA2 PO; -VITA100066 PO; -[UNRECOGNIZED DRUG - CODE]; -[UNRECOGNIZED DRUG - CODE] PO
[2017-09-22] MEDS ORDERED: ALEV220C2 PO (11:19)
[2017-09-22] MEDS ORDERED: [UNRECOGNIZED DRUG - CODE] (11:19)
[2017-09-22] MEDS ORDERED: AMOX400S2 (11:19)
[2017-09-22] MEDS ORDERED: ACETAMINOPH W/CODEINE #3 TAB UD PO ONE (12:15)
[2017-09-22] MEDS ORDERED: KETOROLAC 30 MG/ML VIAL (J1885) IV ONE (12:15)
[2017-09-22] MEDS ORDERED: MORPHINE 2 MG/ML 1ML SYRINGE IV ONE (12:15)
[2017-09-22 12:34] LABS: BASO # 0.1 10^3/uL (0.0-0.2); BASO % 0.9 % (0.0-1.0); EOS # 0.1 10^3/uL (0.0-0.50); EOS % 1.2 % (0.0-3.0); IMMATURE GRANULOCYTE % 0.2 % (0-0); LYMPH # 2.7 10^3/uL (1.5-4.5); LYMPH % 40.8 % (24.0-44.0); MEAN CORPUSCULAR HEMOGLOBIN 28.8 pg (27.0-33.0); MEAN CORPUSCULAR HGB CONC 32.6 g/dl (32.0-36.5); MEAN CORPUSCULAR VOLUME 88.4 fl (80.0-96.0); MONO # 0.7 10^3/uL (0.0-0.8); MONO % 11.2 % (0.0-5.0); NEUTROPHILS % 45.7 % (36.0-66.0); PLATELET COUNT, AUTOMATED 364 10^3/uL (150-450); RED CELL DISTRIBUTION WIDTH 13.3 % (11.5-14.5); WHITE BLOOD COUNT 6.6 10^3/uL (4.0-10.0)
[2017-09-22 13:02] LABS: ALBUMIN 4.1 GM/DL (3.2-5.2); ALBUMIN/GLOBULIN RATIO 1.08 (1.00-1.93); ALKALINE PHOSPHATASE 112 U/L (45-117); ALT/SGPT 43 U/L (12-78); ANION GAP 6 MEQ/L (8-16); AST/SGOT 35 U/L (7-37); BILIRUBIN,TOTAL 0.3 MG/DL (0.2-1.0); BLOOD UREA NITROGEN 11 MG/DL (7-18); CALCIUM LEVEL 9.2 MG/DL (8.5-10.1); CARBON DIOXIDE LEVEL 29 MEQ/L (21-32); CHLORIDE LEVEL 108 MEQ/L (98-107); CREATININE FOR GFR 0.91 MG/DL (0.55-1.02); GLOMERULAR FILTRATION RATE > 60.0 (>51); GLUCOSE, FASTING 150 MG/DL (70-105); POTASSIUM SERUM 4.2 MEQ/L (3.5-5.1); SODIUM LEVEL 143 MEQ/L (136-145); TOTAL PROTEIN 7.9 GM/DL (6.4-8.2)
[2017-09-22] MEDS ORDERED: ISOVUE-370 76% 100ML VIAL (Q9967) As Ordered ONE (13:16)
--- NOTE | 2017-09-22 14:25 | REP ---
REASON: Right ear infection. COMPARISON: None. The ossicles are intact bilaterally. The attic ad antrum are clear bilaterally. The scutum is sharp. The tympanic membrane is intact bilaterally. There is no abnormal TM retraction. The semicircular canals and cochlea are normal bilaterally. The internal auditory canals are normal. The external auditory canal is clear bilaterally. The tegmen and tegmentum are intact. There is no abnormal bony sclerosis or lysis. The mastoid air cells are clear bilaterally. IMPRESSION: Normal bilateral exam. Signed by Clyde Sy DO 09/22/2017 02:33 P
[2017-09-22] MEDS ORDERED: CEFTRIAXONE SOD 1 GM in APPROPRIATE DILUENT 1 EA IV ONE (15:00)
[2017-09-22] MEDS ORDERED: MECL-68 PO (15:01)
[2017-09-22] MEDS ORDERED: AUGM875T28 PO (15:01)
[2017-09-22] MEDS ORDERED: MECLIZINE 25 MG TABLET PO ONE (15:15)
[2017-09-22] MEDS ORDERED: ONDANSETRON 4 MG ORAL DISINTEGRATING TAB (S0181) PO ONE (15:15)
[2017-09-22 15:40] VITALS: BP 133/79
== END 2017-09-22 15:52 | disposition home or self-care (01) ==
LOC: M ED 11:04
DX: L03.90 Cellulitis, unspecified (principal); R42 Dizziness and giddiness; Z86.73 Personal history of transient ischemic attack (TIA), and cerebral infarction without residual deficits; E78.00 Pure hypercholesterolemia, unspecified; I10 Essential (primary) hypertension; E11.9 Type 2 diabetes mellitus without complications; M54.9 Dorsalgia, unspecified; F41.9 Anxiety disorder, unspecified; F32.9 Major depressive disorder, single episode, unspecified; Z79.82 Long term (current) use of aspirin; Z79.4 Long term (current) use of insulin; Z79.899 Other long term (current) drug therapy; Z88.8 Allergy status to other drugs, medicaments and biological substances
CPT/HCPCS: 70481; 80053; 85025; 96374; 96375; 99284; J1885; Q9967

== ENCOUNTER 2017-09-25 01:38 | Observation (INO) | payer MEDICARE, MEDICAID ==
[~2017-09-25] VITALS: Ht 162.6 cm; Wt 81.8 kg
[~2017-09-25 01:38] MED LIST changes: +ALEV220C2 PO; +AMOX400S2; +AUGM875T28 PO; +MECL-68 PO; +[UNRECOGNIZED DRUG - CODE]
[2017-09-25] MEDS ORDERED: CIPROFLOXACIN 400 MG in APPROPRIATE DILUENT 1 EA IV ONE (02:30)
[2017-09-25] MEDS ORDERED: METOCLOPRAMIDE INJ 10MG/2ML VIAL (J2765) IV ONE (02:30)
[2017-09-25] MEDS ORDERED: LORazepam 2 MG/ML VIAL (J2060) IV STA (02:30)
[2017-09-25] MEDS ORDERED: CIPRODEX OTIC SUSP 7.5ML AD ONE (02:30)
[2017-09-25] MEDS ORDERED: NS 1,000 ML IV ONE (02:30)
[2017-09-25 03:05] LABS: VENOUS BASE EXCESS 1.4 (-2.0-2.0); VENOUS O2 SATURATION 91.8 % (60.0-80.0); VENOUS PARTIAL PRESSURE CO2 39.6 mmHg (38.0-50.0); VENOUS PARTIAL PRESSURE O2 62.5 mmHg (30.0-50.0); VENOUS STANDARD HCO3 25.6 MEQ/L
[2017-09-25 03:36] LABS: ALBUMIN 3.9 GM/DL (3.2-5.2); ALBUMIN/GLOBULIN RATIO 1.22 (1.00-1.93); ALKALINE PHOSPHATASE 103 U/L (45-117); ALT/SGPT 43 U/L (12-78); ANION GAP 10 MEQ/L (8-16); AST/SGOT 44 U/L (7-37); BILIRUBIN,DIRECT < 0.1 MG/DL (0.0-0.2); BILIRUBIN,TOTAL 0.4 MG/DL (0.2-1.0); BLOOD UREA NITROGEN 8 MG/DL (7-18); CALCIUM LEVEL 8.9 MG/DL (8.5-10.1); CARBON DIOXIDE LEVEL 26 MEQ/L (21-32); CHLORIDE LEVEL 108 MEQ/L (98-107); CREATININE FOR GFR 0.86 MG/DL (0.55-1.02); GLOMERULAR FILTRATION RATE > 60.0 (>51); GLUCOSE, FASTING 184 MG/DL (70-105); POTASSIUM SERUM 3.9 MEQ/L (3.5-5.1); SODIUM LEVEL 144 MEQ/L (136-145); TOTAL PROTEIN 7.1 GM/DL (6.4-8.2)
[2017-09-25 03:47] LABS: BASO # 0.1 10^3/uL (0.0-0.2); BASO % 0.7 % (0.0-1.0); EOS # 0.1 10^3/uL (0.0-0.50); EOS % 1.6 % (0.0-3.0); IMMATURE GRANULOCYTE % 0.2 % (0-0); LYMPH # 3.5 10^3/uL (1.5-4.5); LYMPH % 41.6 % (24.0-44.0); MEAN CORPUSCULAR HEMOGLOBIN 29.1 pg (27.0-33.0); MEAN CORPUSCULAR HGB CONC 32.9 g/dl (32.0-36.5); MEAN CORPUSCULAR VOLUME 88.6 fl (80.0-96.0); MONO # 0.8 10^3/uL (0.0-0.8); MONO % 9.8 % (0.0-5.0); NEUTROPHILS # 3.8 10^3/uL (1.8-7.7); NEUTROPHILS % 46.1 % (36.0-66.0); PLATELET COUNT, AUTOMATED 254 10^3/uL (150-450); RED CELL DISTRIBUTION WIDTH 13.2 % (11.5-14.5); WHITE BLOOD COUNT 8.3 10^3/uL (4.0-10.0)
[2017-09-25] MEDS ORDERED: GLUCAGON FOR INJ 1 MG VIAL (J1610) SC PRN (05:00)
[2017-09-25] MEDS ORDERED: ACETAMINOPHEN TAB 650MG DOSE (2X325MG) PO PRN (05:00)
[2017-09-25] MEDS ORDERED: GLUCOSE 4 GM CHEW TABLET PO PRN (05:00)
[2017-09-25] MEDS ORDERED: DEXTROSE 50% 50 ML SYRINGE IV PRN (05:00)
[2017-09-25] MEDS ORDERED: CLOB0.0548 TOP (05:17)
[2017-09-25] MEDS ORDERED: ATOR80TA59 PO (05:17)
[2017-09-25] MEDS ORDERED: [UNRECOGNIZED DRUG - CODE] PO (05:17)
[2017-09-25] MEDS ORDERED: INSUH10VL SC (05:17)
[2017-09-25] MEDS ORDERED: AUGM875T28 PO (05:17)
[2017-09-25] MEDS ORDERED: ASPI81CH PO (05:17)
[2017-09-25] MEDS ORDERED: METF10004 PO (05:17)
[2017-09-25] MEDS ORDERED: LOSA25TA8 PO (05:17)
[2017-09-25] MEDS ORDERED: MECL-68 PO (05:17)
[2017-09-25] MEDS ORDERED: VITA100066 PO (05:17)
[2017-09-25] MEDS ORDERED: NORC1TAB4 PO (05:17)
[2017-09-25] MEDS ORDERED: INSULANT SC (05:17)
[2017-09-25 06:00] VITALS: BP 105/65
--- NOTE | 2017-09-25 06:02 | HPE ---
DATE OF ADMISSION: 09/25/2017 PRIMARY CARE PROVIDER: Dr. Javier HISTORY OF PRESENT ILLNESS: This is a 52-year-old female with a past medical history significant for insulin-dependent diabetes, history of transient ischemic attack (TIA), hyperlipidemia, diabetic neuropathy, depression, low back pain who came to [facility] on September 25, 2017 for persistent right ear pain. The patient stated approximately one week ago the patient started having severe pain in the right ear and she also noted she had dizziness associated with the ear pain. The patient went to urgent care approximately seven days ago and the patient received amoxicillin; however the patient's symptoms continued to get worse even after five days of treatment and the patient started to have persistent dizziness. The patient described the dizziness as though she was behaving like a drunk person. She felt the room was spinning. The patient also started to have nausea and vomiting secondary to persistent dizziness. The patient also started to have intermittent double vision for the last three days. No ear discharge. Therefore, the patient called her primary care provider on September 24, 2017 and the patient was told to come to [facility] Emergency room for further evaluation. PAST MEDICAL HISTORY: 1. History of TIAs. 2. Insulin-dependent diabetes. 3. Dyslipidemia. 4. Depression. 5. Chronic lower back pain. 6. Spondylosis cervical and lumbar regions. PAST SURGICAL HISTORY: Tubal ligation. SOCIAL HISTORY: Denies smoking, denies alcohol use, denies recreational drug use. HOME MEDICATIONS: - aspirin 81 mg by mouth daily - atorvastatin 80 mg by mouth daily - Lantus 45 sub cu nightly - metformin 1000 mg by mouth twice a day - Losartan 25 mg by mouth daily - carbamazepine 200 mg by mouth twice a day REVIEW OF SYSTEMS: General: No fever, no chills. HEENT: Complains of about one week of worsening right ear pain without discharge. Complains about intermittent double vision and dizziness. Cardiovascular: No chest pain, no palpitations. Respiratory: No shortness of breath, no cough, no sputum production. Gastrointestinal (GI): Positive nausea and vomiting mostly likely due to persistent dizziness. No abdominal pain, no diarrhea. Musculoskeletal: Chronic back pain, complains about some musculoskeletal pain around the right ear. Neurological: History of diabetic neuropathy. No new numbness or tingling. OBJECTIVE: Vital signs: Temperature 98.6, pulse 78, respirations 18, blood pressure 139/73, pulse oximetry 98% on room air. General: No acute distress. Alert and oriented times three. HEENT: The patient did have swelling and erythema of the ear canal with whitish exudate on the tympanic membrane, very tender to palpation. Around the right lateral mandibular region is also very tender and also the posterior mastoid process is also tender to palpation. No active bleeding or discharge noted. Cardiovascular: Positive S1, S2, regular rate. Lungs: Clear to auscultation bilaterally. Abdomen: Soft, nontender, nondistended, bowel sounds present. Extremities: No edema. No cyanosis. Neurological: Sensation fine touch grossly intact. Motor strength 5/5. LABORATORY DATA: WBC 8.3, hemoglobin 12, hematocrit 36.5, platelet count 254. Sodium 144, potassium 3.9, chloride 108, carbon dioxide 26, BUN 8, creatinine 0.86, GFR greater than 60, fasting glucose 184, lactic acid 1.5, calcium 8.9, total bilirubin 0.4, direct bilirubin less than 0.1, AST 44, ALT 43, alkaline phosphatase 103. C-reactive protein less than 0.3. Total protein 7.1, albumin 3.9. IMAGING STUDIES: CT of the internal acoustic canal (IAC) with contrast on September 22, 2017 shows the ossicles are intact bilateral. Tympanic membrane (TM) is intact bilaterally. No abnormal TM retraction. The semicircular canals and cochlear are normal bilaterally. The internal auditory canals are normal. No abnormal sclerosis or lysis noted. The mastoid air cells are clear bilaterally. ASSESSMENT: 1. Otitis. The patient is admitted to med/surg under observation status. Currently the patient continues to have significant symptoms. It is not safe for the patient to go home. The patient will be on Ciprofloxacin intravenously and also Ciprodex. Control nausea and vomiting with Zofran. 2. Type 2 diabetes. Consistent carbohydrate diet. Continue Levemir, continue sliding scale. 3. Hypertension. Continue Losartan. 4. History of depression. Continue on her home medications. The patient is prescribed Tegretol which is the usual medication for depression. 5. Hyperlipidemia. Cotinine atorvastatin. 6. History of transient ischemic attacks. On aspirin. Deep venous thrombosis (DVT)prophylaxis: On heparin.
[2017-09-25] MEDS: HEPARIN SOD (PORCINE) 5000 UNITS/ML VIAL SC SCH ×3 (06:32→21:13)
[2017-09-25] MEDS: HumaLOG INSULIN (NovoLOG) PER UNIT SC SCH ×3 (07:30→17:18)
[2017-09-25] MEDS: ONDANSETRON 4MG/2ML VIAL (J2405) IV PRN ×3 (09:45→23:56)
[2017-09-25] MEDS: CIPRODEX OTIC SUSP 7.5ML AD SCH ×2 (10:56→21:15)
[2017-09-25] MEDS ORDERED: ISOVUE-370 76% 100ML VIAL (Q9967) As Ordered ONE (11:14)
--- NOTE | 2017-09-25 13:13 | REP ---
Maxillofacial CT study with IV contrast: History: Ear pain with otitis externa. CT contrast dose: 75 ml of intravenous Isovue 370. Comparison CT study September 22, [address] findings: External auditory canals are patent and unremarkable bilaterally. No preauricular or periauricular adenopathy is seen. No soft tissue mass or abnormal fluid collection is appreciated. Parotid and submandibular glands are normal and symmetric. The parapharyngeal and retropharyngeal soft tissues are unremarkable. Maxillary, ethmoidal, and frontal sinuses are clear. Sphenoid sinuses are clear. Mastoid aeration is normal and symmetric. No middle ear fluid or soft tissue density is seen. Internal auditory canals are normal and symmetric. Vestibular and cochlear apparatus are unremarkable. No intracranial abnormality is seen. No abnormal contrast enhancement is observed. No bony destructive lesion is seen. Impression: No abnormality noted. No significant change from September 22, 2017. Signed by Henry Minor MD 09/25/2017 04:00 P
--- NOTE | 2017-09-25 13:37 | REP ---
MRI brain without contrast: History: Dizziness with diplopia. Nausea and vomiting. . Comparison study: Comparison brain CT study November 17, 2013. Technique: Axial and sagittal imaging planes are utilized for T1 and T2-weighted scans. Sequences include spin-echo, fast spin echo, FLAIR, and diffusion weighted sequences. MRI findings: No bony calvarial lesion is seen. Craniocervical junction and upper cervical cord are normal in appearance. There is no MR evidence of significant paranasal sinus disease. No intraorbital abnormality is seen. The lateral, third, and fourth ventricles are normal in size and position. Gaona-white differentiation pattern is intact above and below the tentorium. There is no evidence of intracranial hemorrhage. No mass, infarction, extra-axial fluid collection or midline shift is seen. No abnormal white matter lesion is seen. Impression: Negative noncontrast brain MRI study. Signed by Henry Minor MD 09/25/2017 01:29 P
[2017-09-25 14:00] VITALS: BP 121/72
[2017-09-25] MEDS: CIPROFLOXACIN 400 MG in APPROPRIATE DILUENT 1 EA IV SCH (15:19)
[2017-09-25] MEDS: PANTOPRAZOLE 40MG TAB (PROTONIX) PO SCH (19:00)
[2017-09-25] MEDS ORDERED: HumaLOG INSULIN (NovoLOG) PER UNIT SC SCH (21:00)
[2017-09-25 22:25] VITALS: BP 123/59
[2017-09-26] MEDS: CIPROFLOXACIN 400 MG in APPROPRIATE DILUENT 1 EA IV SCH ×2 (01:54→13:31)
[2017-09-26] MEDS: HEPARIN SOD (PORCINE) 5000 UNITS/ML VIAL SC SCH ×2 (05:56→13:31)
[2017-09-26 06:00] VITALS: BP 128/58
[2017-09-26 08:00] VITALS: BP 132/89
[2017-09-26] MEDS: HumaLOG INSULIN (NovoLOG) PER UNIT SC SCH ×2 (08:22→12:46)
[2017-09-26] MEDS: PANTOPRAZOLE 40MG TAB (PROTONIX) PO SCH (08:22)
[2017-09-26] MEDS: CIPRODEX OTIC SUSP 7.5ML AD SCH (08:23)
[2017-09-26] MEDS ORDERED: CIPR-249 PO (11:36)
[2017-09-26] MEDS ORDERED: CIPRODEX AD (11:36)
[2017-09-26] MEDS ORDERED: PANT40TA2 PO (11:36)
[2017-09-26 11:40] LABS: MEAN CORPUSCULAR HEMOGLOBIN 29.1 pg (27.0-33.0); MEAN CORPUSCULAR HGB CONC 32.7 g/dl (32.0-36.5); PLATELET COUNT, AUTOMATED 269 10^3/uL (150-450); RED CELL DISTRIBUTION WIDTH 13.4 % (11.5-14.5); WHITE BLOOD COUNT 8.7 10^3/uL (4.0-10.0)
--- NOTE | 2017-09-26 13:10 | DS.PDOC ---
Discharge Summary General Date of Admission Sep 25, 2017 at 04:56 Date of Discharge 09/26/17 Primary Care Physician: JOSEPH KWONG DO Attending Physician: RUKHSANA HANNAH MD Discharge Summary PROCEDURES PERFORMED DURING STAY: Brain MRI, maxillary facial CT ADMITTING DIAGNOSES: 1. Otitis externa of the right ear 2. Diplopia 3. Dizziness DISCHARGE DIAGNOSES: 1. Otitis externa of the right ear: Improving with antibiotics 2. Diplopia: resolved 3. Dizziness: Resolved COMPLICATIONS/CHIEF COMPLAINT: Otitis Externa Of Right Ear. HISTORY OF PRESENT ILLNESS: This 52-year-old female presented with 1 week history of severe a pain in the right ear. She also reported dizziness associated with ear pain. Patient went to urgent care during the initial onset and she received amoxicillin. She subsequently took the amoxicillin however the symptoms continue to worsen, with persistent dizziness. She describes her dizziness as a feeling of being drunk. She complained about the room spinning. Patient also started developing nausea and vomiting secondary to the dizziness. 3 days prior to her admission patient started to notice intermittent double vision. She called her primary care office on 09/24/2017, and was instructed to present to the [facility] for evaluation. Patient has a past medical history of insulin-dependent diabetes, history of transient ischemic attack, hyperlipidemia, diabetic neuropathy, depression, and low back pain. HOSPITAL COURSE: She was admitted on 09/25/2017 for observation status and was started on ciprofloxacin IV and Ciprodex for her otitis externa. She was also started on Zofran for nausea and vomiting. A maxillofacial CT and MRI were both performed. Both were within normal limits and did not show any pathology. On 09/26/2017 patient was reevaluated. Patient reported that she feels better and that her dizziness has improved. She also stated that her diplopia had significantly improved. Patient was able to walk around her room without feeling dizzy and she felt that the room was no longer.Neurological exam did not reveal any abnormalities. Patient was not in distress. DISCHARGE MEDICATIONS: Please see below. ALLERGIES: Please see below. PHYSICAL EXAMINATION ON DISCHARGE: VITAL SIGNS: Please see below. GENERAL: No acute distress well mannered well-developed adult female orientated 3 HEENT: Head is atraumatic, eyes are non-icterus noted is moist neck is supple no thyromegaly detected, slight tenderness to palpation around her right ear. CARDIOVASCULAR EXAMINATION: S1 and S2 present within normal limits, no murmurs, rubs, no gallops RESPIRATORY EXAMINATION: Clear to auscultate anterior and bilateral ABDOMINAL EXAMINATION: Soft, nontender EXTREMITIES: No cyanosis no deformity noted Neurological: Sensation fine touch grossly intact. Motor strength 5/5 LABORATORY DATA: Please see below. IMAGING: Brain MRI:Negative noncontrast brain MRI study. Maxillofacial CT:No abnormality noted. No significant change from September 22, 2017 PROGNOSIS: Stable ACTIVITY: As tolerated. DIET: As tolerated DISCHARGE PLAN: Discharge home DISPOSITION: Fair DISCHARGE INSTRUCTIONS: 1. Complete six-day course of ciprofloxacin 500 mg twice a day. 2. Complete 5 day course of Ciprodex otic drops. 3 drops a day 3. Follow-up with PCP if diplopia, dizziness or increased ear pain ITEMS TO FOLLOWUP ON ON OUTPATIENT: 1. Otitis externa 2. Diplopia DISCHARGE CONDITION stable TIME SPENT ON DISCHARGE: Greater than 30 minutes. Vital Signs/I&Os Vital Signs Date Time Temp Pulse Resp B/P (MAP) Pulse Ox O2 Delivery O2 Flow Rate FiO2 09/26/17 08:00 96.7 75 18 132/89 (103) 98 Room Air I&O- Last 24 Hours up to 6 AM 09/27/17 06:00 Intake Total 420 ml Output Total 500 ml Balance -80 ml Laboratory Data Labs 24H Laboratory Tests 2 09/25/17 16:56: Bedside Glucose (Misc Panel) 223H 09/25/17 20:27: Bedside Glucose (Misc Panel) 140H 09/26/17 06:39: Nucleated Red Blood Cells % (auto) 0.0 09/26/17 06:42: C-Reactive Protein, Quantitative < 0.30 09/26/17 08:00: Bedside Glucose (Misc Panel) 186H 09/26/17 12:38: Bedside Glucose (Misc Panel) 267H CBC/BMP Laboratory Tests 09/26/17 06:39 Red Blood Count 3.92 L, Mean Corpuscular Volume 89.0, Mean Corpuscular Hemoglobin 29.1, Mean Corpuscular Hemoglobin Concent 32.7, Red Cell Distribution Width 13.4 FSBS Laboratory Tests Test 09/25/17 16:56 09/25/17 20:27 09/26/17 08:00 09/26/17 12:38 Range/Units Bedside Glucose (Misc Panel) 223 140 186 267 70-105 MG/DL Microbiology Microbiology 09/25/17 Blood Culture - Preliminary, Resulted No growth after 24 hours . All specim... 09/25/17 Blood Culture - Preliminary, Resulted No growth after 24 hours . All specim... 09/25/17 Gastrointestinal Tract Panel (PCR) - Final, Complete Discharge Medications Scheduled (Aspirin) 81 Mg Chw, 81 MG PO DAILY, (Reported) Atorvastatin Calcium (Atorvastatin Calcium) 80 Mg Tab, 80 MG PO DAILY, (Reported ) Carbamazepine (Carbamazepine ER) 100 Mg Cap, 100 MG PO BID, (Reported) Cholecalciferol (Vitamin D) 1,000 Unit Tab, 2,000 UNIT PO DAILY, (Reported) Ciprofloxacin HCl (Cipro) 500 Mg Tab, 500 MG PO BID Ciprofloxacin/Dexamethasone (Ciprodex 0.3-0.1 %) 150 Drop/7.5 Ml Susp, 4 DROP AD BID total of 5 days Clobetasol Propionate (Clobetasol Propionate E) 0.05 % Cre, 1 DOSE TOP DAILY, ( Reported) USES ON RIGHT LEG Insulin Aspart (Novolog) 100 U/Ml Inj, 1 DOSE SC PC, (Reported) PER SLIDING SCALE Insulin Glargine (Lantus) 1 Units/0.01 Ml Susp, 45 UNITS SC QHS, (Reported) Losartan Potassium (Losartan Potassium) 25 Mg Tab, 25 MG PO DAILY, (Reported) Metformin Hydrochloride (Metformin HCl) 1,000 Mg Tab, 1,000 MG PO BID, (Reported ) Pantoprazole Sodium (Pantoprazole Sodium) 40 Mg Tab, 40 MG PO DAILY Scheduled PRN Acetaminophen/Hydrocodone ([place] 5-325 mg) 1 Tab Tab, 1 TAB PO Q4H PRN for PAIN, (Reported) Meclizine HCl (Meclizine HCl) 25 Mg Tab, 25 MG PO Q8H PRN for VERTIGO/DIZZINESS, (Reported) Allergies Coded Allergies: Metaxalone (Verified Allergy, Unknown, rash, 02/28/17) GME ATTESTATION GME ATTESTATION My faculty preceptor for this patient encounter was physically present during the encounter and was fully available. All aspects of the patient interview, examination, medical decision making process, and medical care plan development were reviewed and approved by the faculty preceptor. The faculty preceptor is aware and concurs with the plan as stated in the body of this note and will attest to such by his/her cosignature. JOSEPH KWONG DO Sep 26, 2017 13:10
== END 2017-09-26 16:10 | disposition home or self-care (01) ==
LOC: M ED 01:38 → EDBD 01:38 → M ED INP 04:56 → M MSPAV 05:59 → UNDODISOB 10:41 → M PED 22:20
PROVIDERS: ADMIT Internal Medicine; ATTEND Internal Medicine
DX: H60.501 Unspecified acute noninfective otitis externa, right ear (principal); R42 Dizziness and giddiness; H53.2 Diplopia; E11.9 Type 2 diabetes mellitus without complications; E78.5 Hyperlipidemia, unspecified; G89.29 Other chronic pain; M47.816 Spondylosis without myelopathy or radiculopathy, lumbar region; M47.812 Spondylosis without myelopathy or radiculopathy, cervical region; F32.9 Major depressive disorder, single episode, unspecified; Z86.73 Personal history of transient ischemic attack (TIA), and cerebral infarction without residual deficits; Z79.82 Long term (current) use of aspirin; Z79.84 Long term (current) use of oral hypoglycemic drugs; Z79.899 Other long term (current) drug therapy
CPT/HCPCS: 36415; 70487; 70551; 80048; 80076; 82803; 83605; 83930; 85025; 85027; 86140; 87040; 87507; 96365; 96366; 96375; 96376; 99284; G0378; J0744; J2060; J2405; J2765; Q9967

== ENCOUNTER → 2018-02-12 | Outpatient (REF) | payer MEDICARE ==
[2018-02-12 19:08] LABS: APPEARANCE, URINE CLEAR (CLEAR); BACTERIA, URINE AUTO NEGATIVE (NEGATIVE); BILIRUBIN, URINE AUTO NEGATIVE (NEGATIVE); BLOOD, URINE BLOOD NEGATIVE (NEGATIVE); COLOR, URINE STRAW (YELLOW); GLUCOSE, URINE (UA) AUTO 3+ mg/dL (NEGATIVE); KETONE, URINE AUTO NEGATIVE (NEGATIVE); LEUKOCYTE ESTERASE, URINE AUTO 1+ (NEGATIVE); NITRITE, URINE AUTO NEGATIVE (NEGATIVE); PROTEIN, URINE AUTO NEGATIVE (NEGATIVE); RBC, URINE AUTO 1 /HPF (0-3); SPECIFIC GRAVITY URINE AUTO 1.022 (1.002-1.035); SQUAMOUS EPITHELIAL CELL UR AU 2 /HPF (0-6); UROBILINOGEN, URINE AUTO 0.2 mg/dL (0.0-2.0); WBC, URINE AUTO 3 /HPF (0-3)
[2018-02-12 19:09] LABS: ESTIMATED AVERAGE GLUCOSE 237 MG/DL (60-110); HEMOGLOBIN A1c 9.9 %
== END ==
LOC: M SFHCPLAZ 15:56
DX: E11.65 Type 2 diabetes mellitus with hyperglycemia (principal); R30.0 Dysuria
CPT/HCPCS: 83036

== ENCOUNTER 2018-02-19 10:32 | Emergency (ER) | payer MEDICARE ==
[2018-02-19] MEDS: LIDOCAINE 2% W/EPIN INJ 20ML **PRES FREE INJ (11:00)
[2018-02-19] MEDS: CETACAINE SPRAY 5GM TOP (11:00)
[2018-02-19] MEDS: BUPIVACAINE HCL 0.5% 10 ML VIAL SC (11:00)
[2018-02-19] MEDS: PENICILLIN V POTASSIUM 500 MG TAB PO (11:17)
== END 2018-02-19 11:39 | disposition home or self-care (01) ==
LOC: M ED 10:32
DX: K04.7 Periapical abscess without sinus (principal); R51 Headache; H92.01 Otalgia, right ear; E11.9 Type 2 diabetes mellitus without complications; I10 Essential (primary) hypertension; Z88.8 Allergy status to other drugs, medicaments and biological substances; Z79.899 Other long term (current) drug therapy; Z79.82 Long term (current) use of aspirin; Z79.4 Long term (current) use of insulin
CPT/HCPCS: 64400

== ENCOUNTER 2018-04-30 11:22 | Emergency (ER) | payer MEDICARE ==
[2018-04-30 13:08] LABS: KETONE, URINE AUTO RFX NEGATIVE (NEGATIVE); MUCUS, URINE RFX SMALL (NEGATIVE); NITRITE, URINE AUTO RFX NEGATIVE (NEGATIVE); RBC, URINE AUTO RFX 1 /HPF (0-3); SQUAM EPITHELIAL CELL UR AURFX 1 /HPF (0-6); WBC, URINE AUTO RFX 3 /HPF (0-3)
[2018-04-30] MEDS ORDERED: METOCLOPRAMIDE INJ 10MG/2ML VIAL (J2765) IV (13:15)
[2018-04-30] MEDS ORDERED: PANTOPRAZOLE 40MG INJ (PROTONIX) (C9113) IV (13:15)
[2018-04-30] MEDS ORDERED: NS 1,000 ML IV (13:15)
[2018-04-30] MEDS: GI COCKTAIL 50ML BTL(HYOSCYAMINE/MAALOX/LIDOCAINE VISCOUS)(1:3:1) PO (13:28)
[2018-04-30 14:16] LABS: LEUKOCYTE ESTERASE UR AUTO RFX TRACE (NEGATIVE)
== END 2018-04-30 14:10 | disposition left against medical advice (07) ==
LOC: M ED 11:22
DX: R10.10 Upper abdominal pain, unspecified (principal); E11.9 Type 2 diabetes mellitus without complications; I10 Essential (primary) hypertension; E78.5 Hyperlipidemia, unspecified; M54.9 Dorsalgia, unspecified; F41.9 Anxiety disorder, unspecified; F32.9 Major depressive disorder, single episode, unspecified; Z86.73 Personal history of transient ischemic attack (TIA), and cerebral infarction without residual deficits; Z88.8 Allergy status to other drugs, medicaments and biological substances; Z79.899 Other long term (current) drug therapy; Z79.82 Long term (current) use of aspirin; Z79.4 Long term (current) use of insulin
CPT/HCPCS: 81001

== ENCOUNTER → 2018-05-06 | Outpatient (REF) | payer MEDICARE ==
[2018-05-07 11:38] LABS: APPEARANCE, URINE CLEAR (CLEAR); BACTERIA, URINE AUTO NEGATIVE (NEGATIVE); BILIRUBIN, URINE AUTO NEGATIVE (NEGATIVE); BLOOD, URINE BLOOD NEGATIVE (NEGATIVE); COLOR, URINE STRAW (YELLOW); GLUCOSE, URINE (UA) AUTO 3+ mg/dL (NEGATIVE); KETONE, URINE AUTO NEGATIVE (NEGATIVE); LEUKOCYTE ESTERASE, URINE AUTO NEGATIVE (NEGATIVE); NITRITE, URINE AUTO NEGATIVE (NEGATIVE); PROTEIN, URINE AUTO NEGATIVE (NEGATIVE); RBC, URINE AUTO 1 /HPF (0-3); SQUAMOUS EPITHELIAL CELL UR AU 0 /HPF (0-6); UROBILINOGEN, URINE AUTO 0.2 mg/dL (0.0-2.0); WBC, URINE AUTO 0 /HPF (0-3)
[2018-05-07 13:15] LABS: CHLAMYDIA DNA AMPLIFICATION NEGATIVE (NEGATIVE); GC DNA AMPLIFICATION NEGATIVE (NEGATIVE)
== END ==
LOC: M SFHCPLAZ 11:24
DX: N89.8 Other specified noninflammatory disorders of vagina (principal); R10.32 Left lower quadrant pain; Z12.4 Encounter for screening for malignant neoplasm of cervix
CPT/HCPCS: 81001

== ENCOUNTER → 2018-05-10 | Outpatient (REF) | payer MEDICARE ==
[2018-05-15 00:15] LABS: HERPES HUMAN VIRUS #6 BY PCR Negative (Negative)
== END ==
LOC: M SFHCPLAZ 11:19
DX: N89.8 Other specified noninflammatory disorders of vagina (principal)
CPT/HCPCS: 36415

== ENCOUNTER → 2018-06-18 | Outpatient (CLI) | payer MEDICARE | LOC: M RAD 10:07 | DX: N60.32 Fibrosclerosis of left breast (principal); N60.31 Fibrosclerosis of right breast | CPT/HCPCS: 77066 ==

== ENCOUNTER 2018-07-25 15:37 | Emergency (ER) | payer MEDICARE ==
[2018-07-25] MEDS: ACETAMINOPHEN 325 MG TAB PO (18:15)
[2018-07-25 18:17] LABS: INFLUENZA A AMPLIFICATION NEGATIVE (NEGATIVE); INFLUENZA B AMPLIFICATION NEGATIVE (NEGATIVE)
[2018-07-25] MEDS: IPRATROPIUM 0.5MG/ALBUTEROL 2.5MG INH SOL UD 3ML (DUONEB)(J7620) NEB (18:17)
[2018-07-25] MEDS: AZITHROMYCIN 250 MG TAB PO (19:15)
== END 2018-07-25 19:20 | disposition home or self-care (01) ==
LOC: M ED 15:37
DX: J45.901 Unspecified asthma with (acute) exacerbation (principal); J20.9 Acute bronchitis, unspecified; I10 Essential (primary) hypertension; E11.9 Type 2 diabetes mellitus without complications; E78.9 Disorder of lipoprotein metabolism, unspecified; F41.9 Anxiety disorder, unspecified; Z86.73 Personal history of transient ischemic attack (TIA), and cerebral infarction without residual deficits; Z79.899 Other long term (current) drug therapy; Z79.82 Long term (current) use of aspirin; Z79.4 Long term (current) use of insulin; Z88.8 Allergy status to other drugs, medicaments and biological substances
CPT/HCPCS: 71046

== ENCOUNTER → 2018-07-26 | Outpatient (REF) | payer MEDICARE ==
[2018-07-26 12:34] LABS: ESTIMATED AVERAGE GLUCOSE 220 MG/DL (60-110); HEMOGLOBIN A1c 9.3 %
== END ==
LOC: M SFHCPLAZ 10:10
DX: E11.65 Type 2 diabetes mellitus with hyperglycemia (principal)
CPT/HCPCS: 83036

== ENCOUNTER → 2018-07-26 | Outpatient (REF) | payer MEDICARE ==
[2018-08-01 15:26] LABS: SUMMARY SEE SEPARATE REPORT
== END ==
LOC: M LABDRAWP 10:22
DX: Z51.81 Encounter for therapeutic drug level monitoring (principal); Z79.891 Long term (current) use of opiate analgesic
CPT/HCPCS: 80307; 83036

== ENCOUNTER → 2018-10-29 | Outpatient (REF) | payer MEDICARE ==
[~2018-10-29] MED LIST changes: +ATOR80TA59 PO; +CARB1CAP3; +CARB1CAP3 PO; +CIPR-249 PO; +CIPRODEX AD; +CLOB0.0548 TOP; -GABA-283 PO; +GABA-845 PO; +INSULANT SC; +LOSA25TA14 PO; -LOSA25TA8 PO; +NAPR-885 PO; -NAPR500T3 PO; +NORC1TAB4 PO; +PANT40TA3 PO; +PENI500T OR; +PERC5TAB12 PO; +VENTAER INH; +VITA100066 PO; +ZITHTAB PO; -[UNRECOGNIZED DRUG - CODE]
[2018-10-29 16:15] LABS: HEMOGLOBIN A1c 12.2 %
[2018-10-29 16:30] LABS: CREATININE, URINE 99.6 MG/DL; MALB URINE SIEMENS 8.3 MG/L; MAU/CREAT RATIO 8.3 MCG/MG (0.0-30.0)
== END ==
LOC: M SFHCPLAZ 14:17
PROVIDERS: ATTEND Family Medicine
DX: E11.65 Type 2 diabetes mellitus with hyperglycemia (principal)
CPT/HCPCS: 82043; 83036; G0463

== ENCOUNTER → 2018-11-05 | Outpatient (CLI) | payer MEDICARE, MEDICAID ==
[~2018-11-05] MED LIST changes: -ASPI81CH PO; +ASPI81CH49 PO; -NORC1TAB4 PO; +NORC1TAB7 PO
--- NOTE | 2018-11-06 06:20 | REP ---
Clinical: Thoracic back pain. Technique: AP, lateral, and swimmers views. Findings: Alignment and kyphosis is maintained. Vertebral bodies intact. No acute fracture / compression injury or subluxation. Mild multilevel age-related changes are appreciated without overt degenerative disease noted. Paravertebral soft tissues are normal. Impression: Age-appropriate examination. Electronically Signed by Mickey Adame MD 11/06/2018 06:11 A
== END ==
LOC: M RAD 11:58
PROVIDERS: ATTEND Student in an Organized Health Care Education/Training Program
DX: M54.6 Pain in thoracic spine (principal)

== ENCOUNTER → 2019-02-10 | Outpatient (CLI) | payer MEDICARE, OTHER ==
[2019-02-10 11:54] LABS: HEMOGLOBIN A1c 10.7 %
== END ==
LOC: M LAB 10:59
PROVIDERS: ATTEND Student in an Organized Health Care Education/Training Program
DX: E11.65 Type 2 diabetes mellitus with hyperglycemia (principal)

== ENCOUNTER 2019-03-24 10:33 | Emergency (ER) | payer MEDICARE, MEDICAID ==
[~2019-03-24] VITALS: Ht 162.6 cm; Wt 72.7 kg
[2019-03-24] MEDS ORDERED: PREG25CA (11:20)
[2019-03-24] MEDS ORDERED: ACET300T52 (11:20)
[2019-03-24 13:04] LABS: BASO # 0.1 10^3/uL (0.0-0.2); BASO % 0.7 % (0.0-1.0); EOS # 0.2 10^3/uL (0.0-0.50); EOS % 1.7 % (0.0-3.0); HEMATOCRIT 39.6 % (36.0-47.0); HEMOGLOBIN 12.9 g/dl (12.0-15.5); LYMPH # 4.3 10^3/uL (1.5-4.5); LYMPH % 44.3 % (24.0-44.0); MEAN CORPUSCULAR HGB CONC 32.6 g/dl (32.0-36.5); MONO # 0.7 10^3/uL (0.0-0.8); NEUTROPHILS # 4.5 10^3/uL (1.8-7.7); NEUTROPHILS % 46.1 % (36.0-66.0); PLATELET COUNT, AUTOMATED 366 10^3/uL (150-450); RED BLOOD COUNT 4.45 10^6/uL (4.00-5.40); WHITE BLOOD COUNT 9.7 10^3/uL (4.0-10.0)
[2019-03-24 13:28] LABS: BLOOD UREA NITROGEN 12 MG/DL (7-18); CARBON DIOXIDE LEVEL 30 MEQ/L (21-32); CHLORIDE LEVEL 104 MEQ/L (98-107); CREATININE FOR GFR 0.98 MG/DL (0.55-1.30); GLOMERULAR FILTRATION RATE > 60.0 (>51); GLUCOSE, FASTING 283 MG/DL (70-100); POTASSIUM SERUM 4.6 MEQ/L (3.5-5.1); SODIUM LEVEL 140 MEQ/L (136-145)
[2019-03-24 14:02] VITALS: BP 140/73
== END 2019-03-24 14:11 | disposition home or self-care (01) ==
LOC: M ED 10:33
DX: R10.9 Unspecified abdominal pain (principal); E11.9 Type 2 diabetes mellitus without complications; I10 Essential (primary) hypertension; E78.5 Hyperlipidemia, unspecified; Z79.899 Other long term (current) drug therapy; Z79.82 Long term (current) use of aspirin; Z79.4 Long term (current) use of insulin

== ENCOUNTER 2019-05-07 11:30 | Emergency (ER) | payer MEDICARE, MEDICAID ==
[~2019-05-07] VITALS: Ht 162.6 cm; Wt 72.7 kg
[~2019-05-07 11:30] MED LIST changes: +ACET300T52; +PREG25CA
--- NOTE | 2019-05-07 13:59 | REP ---
RIGHT HAND FOUR VIEWS: Four views of the right hand performed. A relatively smoothly marginated ossific density at the base of the first proximal phalanx medially appears to represent an old avulsion fracture. No acute fracture or dislocation is seen. There is mild spurring at the base of the first distal phalanx. There is mild diffuse narrowing of the distal interphalangeal joints. A tiny spur is seen at the dorsal aspect of the fifth distal phalanx. IMPRESSION: Avulsion fracture at the base of the first proximal phalanx medially appears to be old. Mild spurring at the base of the first distal phalanx. Electronically Signed by Christopher Gaona MD 05/08/2019 11:07 A
[2019-05-07] MEDS ORDERED: IBUPROFEN 800 MG TAB PO ONE (14:15)
[2019-05-07 15:08] VITALS: BP 130/77
== END 2019-05-07 15:11 | disposition home or self-care (01) ==
LOC: M ED 11:30
DX: S62.640A Nondisplaced fracture of proximal phalanx of right index finger, initial encounter for closed fracture (principal); X58.XXXA Exposure to other specified factors, initial encounter; Y92.9 Unspecified place or not applicable; Y93.9 Activity, unspecified; Y99.9 Unspecified external cause status; E11.9 Type 2 diabetes mellitus without complications; I10 Essential (primary) hypertension; G89.29 Other chronic pain; M54.9 Dorsalgia, unspecified; E78.5 Hyperlipidemia, unspecified; Z86.73 Personal history of transient ischemic attack (TIA), and cerebral infarction without residual deficits; Z79.82 Long term (current) use of aspirin; Z79.4 Long term (current) use of insulin; Z79.899 Other long term (current) drug therapy; Z88.8 Allergy status to other drugs, medicaments and biological substances

== ENCOUNTER → 2019-05-09 | Outpatient (REF) | payer MEDICARE, MEDICAID ==
[2019-05-09 14:26] LABS: HEMOGLOBIN A1c 10.2 %
== END ==
LOC: M SFHCPLAZ 11:40
PROVIDERS: ATTEND Family Medicine
DX: E11.65 Type 2 diabetes mellitus with hyperglycemia (principal)
CPT/HCPCS: 36415; 83036; G0463

== ENCOUNTER → 2019-08-07 | Outpatient (REF) | payer MEDICARE, MEDICAID ==
[2019-08-07 13:37] LABS: C REACTIVE PROTEIN QUANTITATIV 0.57 MG/DL (0.00-0.30); RHEUMATOID FACTOR QUANT < 10.0 IU/ML (<15.0)
[2019-08-13 00:07] LABS: ANTINUCLEAR ANTIBODIES DIRECT Negative (Negative); HLA-B27 Negative (.)
== END ==
LOC: M LABDRAW1 12:47
PROVIDERS: ATTEND Physician Assistant
DX: M47.812 Spondylosis without myelopathy or radiculopathy, cervical region (principal)

== ENCOUNTER → 2019-08-26 | Outpatient (REF) | payer MEDICARE, MEDICAID ==
[2019-08-26 18:04] LABS: BLOOD UREA NITROGEN 13 MG/DL (7-18); CALCIUM LEVEL 9.9 MG/DL (8.5-10.1); CARBON DIOXIDE LEVEL 30 MEQ/L (21-32); CHLORIDE LEVEL 109 MEQ/L (98-107); GLOMERULAR FILTRATION RATE > 60.0 (>51); GLUCOSE, FASTING 88 MG/DL (70-100); POTASSIUM SERUM 4.2 MEQ/L (3.5-5.1); SODIUM LEVEL 143 MEQ/L (136-145)
[2019-08-26 18:22] LABS: HEMOGLOBIN A1c 10.4 %
== END ==
LOC: M SFHCPLAZ 15:19
PROVIDERS: ATTEND Family Medicine
DX: E11.65 Type 2 diabetes mellitus with hyperglycemia (principal); M79.89 Other specified soft tissue disorders
CPT/HCPCS: 36415; 80048; 83036; G0463

== ENCOUNTER → 2019-08-29 | Outpatient (CLI) | payer MEDICARE, MEDICAID ==
--- NOTE | 2019-08-29 15:25 | REP ---
HISTORY: Persistent hand pain. COMPARISON: 05/07/2019 which showed a fracture involving the base of the proximal phalanx of the first digit. The fracture seen previously involving the base of the proximal phalanx of the first digit is now more displaced. There are no other significant changes compared to the prior exam. IMPRESSION: Increased displacement of the fracture seen involving the base of the proximal phalanx of the first digit, however, the evolved fracture is now well corticated and smoothly marginated. Electronically Signed by Clyde Sy DO 08/29/2019 03:29 P
== END ==
LOC: M RAD 12:06
PROVIDERS: ATTEND Family Medicine
DX: M79.641 Pain in right hand (principal); S62.511A Displaced fracture of proximal phalanx of right thumb, initial encounter for closed fracture; X58.XXXA Exposure to other specified factors, initial encounter; Y92.9 Unspecified place or not applicable

== ENCOUNTER → 2019-09-10 | Outpatient (CLI) | payer MEDICARE, MEDICAID ==
[~2019-09-10] MED LIST changes: +PROHANCE 279.3MG/ML 15ML VIAL (A9576) As Ordered ONE
--- NOTE | 2019-09-10 10:12 | REP ---
MRI LEFT FOOT WITH AND WITHOUT CONTRAST: Multiple sequences were obtained in the axial, coronal, and sagittal planes prior to and following the intravenous administration of 15 mL ProHance. Patient reports a palpable lump along the dorsum of the 3rd toe. That area is marked on the skin. At the site of the palpable lump, there is ill-defined low signal on T1 and high signal on T2 within the extensor tendon of the 3rd toe as well as in the adjacent soft tissues, compatible with tendinitis. No cystic or solid nodule is seen. There is mild diffuse enhancement of the tendon with no enhancing mass. There is ill-defined high signal on T2-weighted images anterior to the Achilles tendon compatible with mild sharon-tendonitis. Signal within the Achilles tendon is homogeneous and unremarkable. At the ankle, there is lateral subluxation of the peroneal tendons, with dorsal subluxation of the peroneus longus tendon as well. The peroneus brevis tendon demonstrates a partial tear with separation into two or three sub-tendons in the retromalleolar region. There is ill-defined T2 high signal involving this portion of the peroneus brevis tendon. Medial tendons at the ankle appear intact. Plantar tendon appears intact. Flexor and extensor tendons of the foot appear intact without other evidence of significant tenosynovitis. The osseous structures of the foot demonstrate normal marrow signal with no occult fracture. IMPRESSION: At the site of the palpable lump at the dorsum of the 3rd toe, there are findings compatible with extensor tendinitis, with no cystic or solid mass. There are findings compatible with Achilles peritendinitis. The peroneal tendons at the level of the ankle are subluxed laterally, with dorsal subluxation of the peroneus longus tendon as well, and the peroneus brevis tendon demonstrates a partial tear in the retromalleolar region. Electronically Signed by Christopher Gaona MD 09/10/2019 12:19 P
== END ==
LOC: M RAD 06:47
PROVIDERS: ATTEND Student in an Organized Health Care Education/Training Program
DX: M79.89 Other specified soft tissue disorders (principal)
CPT/HCPCS: 73720; A9576

== ENCOUNTER 2019-10-14 11:08 | Emergency (ER) | payer MEDICARE, MEDICAID ==
[~2019-10-14] VITALS: Ht 162.6 cm; Wt 74.0 kg
[~2019-10-14 11:08] MED LIST changes: -PROHANCE 279.3MG/ML 15ML VIAL (A9576) As Ordered ONE
--- NOTE | 2019-10-14 12:01 | REP ---
Clinical: Shortness of breath and cough . Comparison: 07/25/2018 . Technique: PA and lateral. Findings: The mediastinum and cardiac silhouette are normal. The lung cheney are clear and without acute consolidation, effusion, or pneumothorax. The skeletal structures are intact and normal. Impression: 1. No acute cardiopulmonary process. Electronically Signed by Mickey Adame MD 10/14/2019 11:53 A
[2019-10-14] MEDS ORDERED: TESS100C PO (12:31)
[2019-10-14] MEDS ORDERED: LIDO1SOL8 PO (12:31)
[2019-10-14 12:46] VITALS: BP 129/74
== END 2019-10-14 12:47 | disposition home or self-care (01) ==
LOC: M ED 11:08
DX: J20.9 Acute bronchitis, unspecified (principal); B34.9 Viral infection, unspecified; E11.9 Type 2 diabetes mellitus without complications; I10 Essential (primary) hypertension; Z79.82 Long term (current) use of aspirin; Z79.4 Long term (current) use of insulin; Z79.899 Other long term (current) drug therapy; Z88.8 Allergy status to other drugs, medicaments and biological substances

== ENCOUNTER 2019-11-05 09:13 | Emergency (ER) | payer MEDICARE, MEDICAID ==
[~2019-11-05] VITALS: Ht 162.6 cm; Wt 73.8 kg
[~2019-11-05 09:13] MED LIST changes: +LIDO1SOL8 PO; -MECL-68 PO; +MECL1TAB31 PO; +TESS100C PO
[2019-11-05] MEDS ORDERED: NS 1,000 ML IV ONE (10:00)
[2019-11-05] MEDS ORDERED: ISOVUE-370 76% 100ML VIAL (Q9967) As Ordered ONE (10:21)
[2019-11-05 10:23] LABS: BASO % 0.5 % (0.0-1.0); EOS # 0.2 10^3/uL (0.0-0.5); EOS % 2.7 % (0.0-3.0); HEMOGLOBIN 12.9 g/dl (12.0-15.5); LYMPH # 4.1 10^3/uL (1.5-5.0); LYMPH % 46.8 % (24.0-44.0); MEAN CORPUSCULAR HEMOGLOBIN 28.6 pg (27.0-33.0); MEAN CORPUSCULAR HGB CONC 31.5 g/dl (32.0-36.5); MEAN CORPUSCULAR VOLUME 90.9 fl (80.0-96.0); MONO # 0.7 10^3/uL (0.0-0.8); MONO % 7.4 % (0.0-5.0); NEUTROPHILS # 3.7 10^3/uL (1.5-8.5); NEUTROPHILS % 42.4 % (36.0-66.0); PLATELET COUNT, AUTOMATED 370 10^3/uL (150-450); RED BLOOD COUNT 4.51 10^6/uL (4.00-5.40); WHITE BLOOD COUNT 8.8 10^3/uL (4.0-10.0)
[2019-11-05] MEDS ORDERED: METF10004 PO (10:24)
[2019-11-05 10:52] LABS: ALBUMIN 3.5 GM/DL (3.2-5.2); ALT/SGPT 43 U/L (12-78); BILIRUBIN,DIRECT < 0.1 MG/DL (0.0-0.2); BILIRUBIN,TOTAL 0.4 MG/DL (0.2-1.0); LIPASE 226 U/L (73-393); TOTAL PROTEIN 6.9 GM/DL (6.4-8.2)
--- NOTE | 2019-11-05 11:09 | REP ---
CT ABDOMEN PELVIS WITH IV CONTRAST ONLY: 11/05/2019. Clinical history: Abdominal pain and rectal bleeding. Evaluate for diverticulitis or other. No comparison study. Technique: The patient received a bolus of 100 mL Isovue 370 scanning through the abdomen pelvis with coronal and sagittal reconstructions. Findings: CT abdomen: Lung bases show minor dependent atelectasis but were otherwise clear. Heart not grossly enlarged. No pericardial thickening or effusion and no definite hiatal hernia. There is no hepatomegaly with a vertical diameter of the liver in the midclavicular line 16 cm. I see no hepatic mass or biliary dilatation. Smooth liver contour noted. Spleen is not enlarged and shows no focal lesion. No ascites in the upper abdomen. Gallbladder without calcified stone or mass. Stomach only small amount of retained fluid. Common duct, pancreatic head near the pancreas grossly intact. Pancreatic duct up to 3 mm without mass. No peripancreatic adenopathy, fluid collection or mass. Adrenal glands normal. Kidneys show function without obstruction, stone, mass or cyst. No perinephric edema. The aorta is without aneurysm. There is no periaortic, mesenteric or retroperitoneal pathologic sized lymphadenopathy. I see no sign of colitis or diverticulitis in the abdominal portion of the colon. Small bowel loops grossly intact. The bone windows show lumbar and lower thoracic levels without compression deformity, disc space narrowing or destructive lesion. Facets intact. Visualized lower ribs intact. CT pelvis: Sacrum, SI joints, iliac bones, acetabuli, ischia and hips without fracture or acute finding. Distal left colon and sigmoid are without signs of diverticulitis or colitis. There is some very minimal inflammatory change in the fat adjacent to the rectum, which might reflect some mild proctitis. Appendix is seen and normal. No inflammatory changes are seen about the cecum or in the periappendiceal fat. Uterus tilted towards the left but without enlargement. There is a few scattered calcifications in fibroids. There is no pelvic mass or free fluid. I see no ventral, umbilical, or inguinal hernia nor pathologic sized inguinal adenopathy. No pelvic adenopathy. Impression: 1. The abdominal and pelvic portions of the colon were normal without diverticulitis or colitis through the sigmoid. 2. Very mild inflammatory changes in the fat adjacent to the rectum which may reflect some mild proctitis. No gross mass evident. 3. Appendix seen and normal. Small bowel loops unremarkable and the solid organs upper abdomen were normal as is the gallbladder and stomach. No hiatal hernia. 4. No ventral or inguinal hernia. Electronically Signed by Richie Deleon MD 11/05/2019 01:21 P
[2019-11-05 12:30] LABS: CHLAMYDIA DNA AMPLIFICATION NEGATIVE (NEGATIVE); GC DNA AMPLIFICATION NEGATIVE (NEGATIVE)
[2019-11-05] MEDS ORDERED: AUGM875T28 PO (12:40)
[2019-11-05 12:48] VITALS: BP 143/85
== END 2019-11-05 12:50 | disposition home or self-care (01) ==
LOC: M ED 09:13
DX: K62.89 Other specified diseases of anus and rectum (principal); E11.9 Type 2 diabetes mellitus without complications; I10 Essential (primary) hypertension; G89.29 Other chronic pain; M54.2 Cervicalgia; Z79.82 Long term (current) use of aspirin; Z79.4 Long term (current) use of insulin; Z79.899 Other long term (current) drug therapy; Z88.8 Allergy status to other drugs, medicaments and biological substances
CPT/HCPCS: 74177; 80047; 80076; 81001; 83690; 85025; 87210; 87491; 87591; 96360; 96361; 99284; Q9967

== ENCOUNTER 2023-06-04 14:41 | Emergency (ER) | payer MEDICARE, MEDICAID ==
[~2023-06-04] VITALS: Ht 160 cm; Wt 70.4 kg
[~2023-06-04 14:41] MED LIST changes: +CIPR7.5D5 AD; -CIPRODEX AD; -CITA10TA5 PO; +CITA10TA7 PO; +GABA-284 PO; -GABA-845 PO; +LIDO15SO PO; -LIDO1SOL8 PO; +LOSA25TA13 PO; -LOSA25TA14 PO; +PANT40TA29 PO; -PANT40TA3 PO
[2023-06-04 15:31] LABS: APPEARANCE, URINE HAZY (CLEAR); BACTERIA, URINE AUTO 1+ (NEGATIVE); BILIRUBIN, URINE AUTO NEGATIVE (NEGATIVE); BLOOD, URINE BLOOD 1+ (NEGATIVE); COLOR, URINE YELLOW (YELLOW); GLUCOSE, URINE (UA) AUTO 3+ mg/dL (NEGATIVE); KETONE, URINE AUTO TRACE mg/dL (NEGATIVE); LEUKOCYTE ESTERASE, URINE AUTO 3+ (NEGATIVE); NITRITE, URINE AUTO NEGATIVE (NEGATIVE); PROTEIN, URINE AUTO NEGATIVE (NEGATIVE); RBC, URINE AUTO 36 /HPF (0-3); SPECIFIC GRAVITY URINE AUTO 1.021 (1.002-1.035); SQUAMOUS EPITHELIAL CELL UR AU 0 /HPF (0-6); UROBILINOGEN, URINE AUTO 0.2 mg/dL (0.0-2.0); WBC, URINE AUTO 77 /HPF (0-3)
[2023-06-04] MEDS ORDERED: NS 1,000 ML IV ONE (19:25)
[2023-06-04 19:34] LABS: HEMATOCRIT 43.1 % (36.0-47.0); HEMOGLOBIN 13.8 g/dl (12.0-15.5); MEAN CORPUSCULAR HEMOGLOBIN 28.2 pg (27.0-33.0); PLATELET COUNT, AUTOMATED 353 10^3/uL (150-450); WHITE BLOOD COUNT 10.7 10^3/uL (4.0-10.0)
[2023-06-04 19:49] LABS: LIPASE 35 U/L (12-53)
[2023-06-04 19:51] LABS: ALBUMIN 4.1 G/DL (3.2-5.2); ALKALINE PHOSPHATASE 259 U/L (46-116); ALT/SGPT 153 U/L (7.0-40); AST/SGOT 112 U/L (<34); BILIRUBIN,DIRECT 0.1 MG/DL (<0.4); BILIRUBIN,TOTAL 0.6 MG/DL (0.3-1.2); BLOOD UREA NITROGEN 11 MG/DL (9-23); CALCIUM LEVEL 9.8 MG/DL (8.5-10.1); CARBON DIOXIDE LEVEL 29 MMOL/L (20-31); CHLORIDE LEVEL 101 MMOL/L (98-107); CREATININE FOR GFR 0.64 MG/DL (0.55-1.30); GLOMERULAR FILTRATION RATE > 60.0 (>51); GLUCOSE, FASTING 376 MG/DL (60-100); POTASSIUM SERUM 4.6 MMOL/L (3.5-5.1); SODIUM LEVEL 138 MMOL/L (136-145); TOTAL PROTEIN 7.8 G/DL (5.7-8.2)
[2023-06-04] MEDS ORDERED: DOXYCYCLINE HYCLATE 100MG TABLET PO STA (21:02)
[2023-06-04] MEDS ORDERED: DOXY-443 PO (21:05)
[2023-06-04] MEDS ORDERED: DIFL200T PO (21:13)
[2023-06-04] MEDS ORDERED: METR-265 PO (21:13)
[2023-06-04] MEDS ORDERED: metroNIDAZOLE (FLAGYL) 500MG TABLET PO ONE (21:15)
[2023-06-04 21:20] VITALS: BP 110/77; TEMP 98; O2SAT 100
[2023-06-04 21:25] LABS: GC DNA AMPLIFICATION NEGATIVE (NEGATIVE)
== END 2023-06-04 21:22 | disposition home or self-care (01) ==
LOC: M ED 14:41
DX: A59.01 Trichomonal vulvovaginitis (principal); Z20.822 Contact with and (suspected) exposure to COVID-19; Z20.89 Contact with and (suspected) exposure to other communicable diseases; E11.9 Type 2 diabetes mellitus without complications; I10 Essential (primary) hypertension; Z86.73 Personal history of transient ischemic attack (TIA), and cerebral infarction without residual deficits; F41.9 Anxiety disorder, unspecified; F32.A Depression, unspecified; Z79.82 Long term (current) use of aspirin; Z79.4 Long term (current) use of insulin; Z79.899 Other long term (current) drug therapy; Z88.8 Allergy status to other drugs, medicaments and biological substances

== ENCOUNTER → 2023-08-13 | Outpatient (REF) | payer MEDICARE, MEDICAID ==
[~2023-08-13] MED LIST changes: +DIFL200T PO; +DOXY-443 PO; +MECL-209 PO; -MECL1TAB31 PO; +METR-265 PO
[2023-08-13 18:38] LABS: HEMOGLOBIN A1c 12.5 % (4.0-6.0)
[2023-08-13 18:57] LABS: ALBUMIN 3.7 G/DL (3.2-5.2); ALKALINE PHOSPHATASE 192 U/L (46-116); ALT/SGPT 90 U/L (7.0-40); AST/SGOT 35 U/L (<34); BILIRUBIN,DIRECT 0.2 MG/DL (<0.4); BILIRUBIN,TOTAL 0.5 MG/DL (0.3-1.2); CHOLESTEROL LEVEL 237 MG/DL (<200); CHOLESTEROL RISK RATIO 4.66 (<5); HDL CHOLESTEROL 50.8 MG/DL (>40); NON-HDL-C 186.2 MG/DL; TOTAL PROTEIN 7.1 G/DL (5.7-8.2); TRIGLYCERIDES LEVEL 256 MG/DL (<150)
[2023-08-13 19:24] LABS: HIV 1&2 SCREEN NEGATIVE (NEGATIVE)
[2023-08-13 19:32] LABS: HEPATITIS C VIRUS ABY INDEX 0.03 INDEX (<0.8)
[2023-08-14 14:42] LABS: CHLAMYDIA DNA AMPLIFICATION NEGATIVE (NEGATIVE); GC DNA AMPLIFICATION NEGATIVE (NEGATIVE)
== END ==
LOC: M LAB REF 17:36
PROVIDERS: ATTEND Nurse Practitioner Family
DX: R74.01 Elevation of levels of liver transaminase levels (principal); Z11.9 Encounter for screening for infectious and parasitic diseases, unspecified; E11.9 Type 2 diabetes mellitus without complications

== ENCOUNTER 2023-08-15 15:35 | Emergency (ER) | payer MEDICARE, MEDICAID ==
[~2023-08-15] VITALS: Ht 160 cm; Wt 71.4 kg
[2023-08-15 15:36] VITALS: BP 137/76; TEMP 98.7; O2SAT 100
== END 2023-08-15 19:50 | disposition left against medical advice (07) ==
LOC: M ED 15:35
DX: Z53.21 Procedure and treatment not carried out due to patient leaving prior to being seen by health care provider (principal)

== ENCOUNTER → 2023-10-17 | Outpatient (REF) | payer MEDICARE, MEDICAID ==
[2023-10-17 19:31] LABS: CREATININE, URINE 63.3 MG/DL; MAU/CREAT RATIO 14.2 MCG/MG (0.0-30.0)
[2023-10-17 19:42] LABS: THYROID STIMULATING HORMONE 1.478 uIU/ML (0.55-4.78)
[2023-10-17 19:44] LABS: ALBUMIN 3.4 G/DL (3.2-5.2); ALKALINE PHOSPHATASE 183 U/L (46-116); ALT/SGPT 49 U/L (7.0-40); AST/SGOT 33 U/L (<34); BILIRUBIN,DIRECT 0.2 MG/DL (<0.4); BILIRUBIN,TOTAL 0.4 MG/DL (0.3-1.2); BLOOD UREA NITROGEN 20 MG/DL (9-23); CALCIUM LEVEL 8.7 MG/DL (8.3-10.6); CARBON DIOXIDE LEVEL 27 MMOL/L (20-31); CHLORIDE LEVEL 107 MMOL/L (98-107); CHOLESTEROL LEVEL 161 MG/DL (<200); CHOLESTEROL RISK RATIO 2.43 (<5); CREATININE FOR GFR 0.76 MG/DL (0.55-1.30); GLOMERULAR FILTRATION RATE > 60.0 (>45); GLUCOSE, FASTING 237 MG/DL (74-106); LDL CHOLESTEROL 73.6 MG/DL (<100); POTASSIUM SERUM 4.5 MMOL/L (3.5-5.1); SODIUM LEVEL 138 MMOL/L (136-145); TOTAL PROTEIN 6.4 G/DL (5.7-8.2); TRIGLYCERIDES LEVEL 107 MG/DL (<150)
[2023-10-17 20:33] LABS: HEMOGLOBIN A1c 12.6 % (4.0-6.0)
== END ==
LOC: M LAB REF 16:35
PROVIDERS: ATTEND Family Medicine Addiction Medicine
DX: E11.9 Type 2 diabetes mellitus without complications (principal); E78.5 Hyperlipidemia, unspecified; R74.01 Elevation of levels of liver transaminase levels

== ENCOUNTER 2023-11-07 09:30 | Day surgery (SDC) | payer MEDICARE, MEDICAID ==
[~2023-11-07] VITALS: Ht 160 cm; Wt 74.0 kg
[~2023-11-07 09:30] MED LIST changes: +AMIT50TA PO; +LANTINJ4 SC; +NS 1,000 ML IV ONE; +VITA100093 PO
[2023-11-07] MEDS ORDERED: LIDOCAINE 2% 100MG/5ML SDV (FOR ANES.) As Ordered ONE (10:07)
[2023-11-07] MEDS ORDERED: fentaNYL 100 MCG/2 ML INJECTION As Ordered ONE (10:07)
[2023-11-07] MEDS ORDERED: propofoL 200 MG/20 ML VIAL As Ordered ONE ×2 (10:07→14:07)
[2023-11-07] MEDS ORDERED: INSULIN LISPRO (NovoLOG) PER UNIT SC PRN (11:20)
[2023-11-07] MEDS ORDERED: GLYCOPYRROLATE INJ 0.2 MG/ML 2 ML VIAL As Ordered ONE (13:56)
[2023-11-07] MEDS ORDERED: ESMOLOL INJ 100MG/10ML VIAL As Ordered ONE (14:26)
[2023-11-07 14:27] VITALS: TEMP 97.5
[2023-11-07 14:50] VITALS: BP 168/98; O2SAT 97
== END 2023-11-07 14:57 | disposition home or self-care (01) ==
LOC: M OPP 09:30
PROVIDERS: ATTEND Surgery
DX: K62.5 Hemorrhage of anus and rectum (principal); Z87.19 Personal history of other diseases of the digestive system; K44.9 Diaphragmatic hernia without obstruction or gangrene; K30 Functional dyspepsia; R13.12 Dysphagia, oropharyngeal phase; R13.13 Dysphagia, pharyngeal phase; Z87.891 Personal history of nicotine dependence; E11.9 Type 2 diabetes mellitus without complications; G47.9 Sleep disorder, unspecified; Z79.02 Long term (current) use of antithrombotics/antiplatelets; Z79.4 Long term (current) use of insulin; Z79.82 Long term (current) use of aspirin; Z79.899 Other long term (current) drug therapy; Z88.8 Allergy status to other drugs, medicaments and biological substances
CPT/HCPCS: 43235; 45378; J1805; J1815; J3010

== ENCOUNTER → 2023-11-22 | Outpatient (REF) | payer MEDICARE, MEDICAID ==
[~2023-11-22] MED LIST changes: -NS 1,000 ML IV ONE
== END ==
LOC: M SFHCWAGY 13:43
PROVIDERS: ATTEND Nurse Practitioner Family
DX: Z12.72 Encounter for screening for malignant neoplasm of vagina (principal)
CPT/HCPCS: 87624; G0123

== ENCOUNTER → 2023-11-22 | Outpatient (CLI) | payer MEDICARE, MEDICAID | LOC: M WHC 08:16 | PROVIDERS: ATTEND Nurse Practitioner Family | DX: Z12.31 Encounter for screening mammogram for malignant neoplasm of breast (principal) ==

== ENCOUNTER → 2024-01-03 | Outpatient (REF) | payer MEDICARE, MEDICAID ==
[~2024-01-03] MED LIST changes: -LIDO15SO PO; +LIDO15SO8 PO
[2024-01-03 17:09] LABS: ALBUMIN 3.7 G/DL (3.2-5.2); ALKALINE PHOSPHATASE 209 U/L (46-116); ALT/SGPT 82 U/L (7.0-40); AST/SGOT 32 U/L (<34); BILIRUBIN,TOTAL 0.4 MG/DL (0.3-1.2); BLOOD UREA NITROGEN 14 MG/DL (9-23); CALCIUM LEVEL 9.7 MG/DL (8.3-10.6); CARBON DIOXIDE LEVEL 28 MMOL/L (20-31); CHLORIDE LEVEL 104 MMOL/L (98-107); CHOLESTEROL LEVEL 156 MG/DL (<200); CHOLESTEROL RISK RATIO 3.04 (<5); CREATININE FOR GFR 0.78 MG/DL (0.55-1.30); GLOMERULAR FILTRATION RATE > 60.0 (>45); GLUCOSE, FASTING 155 MG/DL (74-106); HDL CHOLESTEROL 51.2 MG/DL (>40); HEMOGLOBIN A1c 12.4 % (4.0-6.0); LDL CHOLESTEROL 76.4 MG/DL (<100); NON-HDL-C 104.8 MG/DL; POTASSIUM SERUM 4.4 MMOL/L (3.5-5.1); SODIUM LEVEL 139 MMOL/L (136-145); TOTAL PROTEIN 6.7 G/DL (5.7-8.2); TRIGLYCERIDES LEVEL 142 MG/DL (<150)
[2024-01-03 17:10] LABS: THYROID STIMULATING HORMONE 1.366 uIU/ML (0.55-4.78)
== END ==
LOC: M LAB REF 16:18
PROVIDERS: ATTEND Family Medicine Addiction Medicine
DX: E11.9 Type 2 diabetes mellitus without complications (principal)

== ENCOUNTER 2024-01-17 15:53 | Emergency (ER) | payer MEDICARE, MEDICAID ==
[~2024-01-17] VITALS: Ht 160 cm; Wt 76.1 kg
[2024-01-17] MEDS ORDERED: PANT40TA29 PO (16:03)
[2024-01-17 19:02] LABS: BASO # 0.1 10^3/uL (0.0-0.2); BASO % 0.6 % (0.0-1.0); EOS # 0.1 10^3/uL (0.0-0.5); EOS % 1.2 % (0.0-3.0); HEMATOCRIT 40.5 % (36.0-47.0); HEMOGLOBIN 13.2 g/dl (12.0-15.5); LYMPH # 3.8 10^3/uL (1.5-5.0); LYMPH % 37.8 % (24.0-44.0); MEAN CORPUSCULAR HEMOGLOBIN 28.8 pg (27.0-33.0); MEAN CORPUSCULAR HGB CONC 32.6 g/dl (32.0-36.5); MEAN CORPUSCULAR VOLUME 88.4 fl (80.0-96.0); MONO # 0.8 10^3/uL (0.0-0.8); MONO % 7.5 % (2.0-8.0); NEUTROPHILS # 5.2 10^3/uL (1.5-8.5); NEUTROPHILS % 52.6 % (36.0-66.0); PLATELET COUNT, AUTOMATED 332 10^3/uL (150-450); RED BLOOD COUNT 4.58 10^6/uL (4.00-5.40)
[2024-01-17 19:22] LABS: LIPASE 38 U/L (12-53)
[2024-01-17 19:24] LABS: ALBUMIN 3.7 G/DL (3.2-5.2); ALKALINE PHOSPHATASE 179 U/L (46-116); ALT/SGPT 40 U/L (7.0-40); AST/SGOT 27 U/L (<34); BILIRUBIN,DIRECT < 0.1 MG/DL (<0.4); BILIRUBIN,TOTAL 0.3 MG/DL (0.3-1.2); TOTAL PROTEIN 7.1 G/DL (5.7-8.2)
[2024-01-17 21:54] LABS: Trichomonas vaginalis (AMP) NOT DETECTED (NEGATIVE)
[2024-01-17 22:18] LABS: GC DNA AMPLIFICATION NEGATIVE (NEGATIVE)
[2024-01-17] MEDS ORDERED: METR-265 PO (22:31)
[2024-01-17 22:34] VITALS: BP 136/86; TEMP 97.8; O2SAT 98
== END 2024-01-17 22:56 | disposition home or self-care (01) ==
LOC: M ED 15:53
DX: N76.0 Acute vaginitis (principal); N85.8 Other specified noninflammatory disorders of uterus; I10 Essential (primary) hypertension; E11.9 Type 2 diabetes mellitus without complications; Z86.73 Personal history of transient ischemic attack (TIA), and cerebral infarction without residual deficits; Z79.4 Long term (current) use of insulin; Z79.82 Long term (current) use of aspirin; Z79.899 Other long term (current) drug therapy; Z88.8 Allergy status to other drugs, medicaments and biological substances

== ENCOUNTER 2024-02-10 16:23 | Emergency (ER) | payer MEDICARE, MEDICAID ==
[~2024-02-10] VITALS: Ht 160 cm; Wt 77.3 kg
[2024-02-10] MEDS ORDERED: ISOVUE-370 76% 100ML VIAL As Ordered ONE (16:43)
[2024-02-10] MEDS: KETOROLAC 30 MG/ML 1ML VIAL IV ONE (16:53)
[2024-02-10 17:13] LABS: BASO # 0.1 10^3/uL (0.0-0.2); BASO % 0.7 % (0.0-1.0); EOS # 0.3 10^3/uL (0.0-0.5); EOS % 2.8 % (0.0-3.0); HEMATOCRIT 38.8 % (36.0-47.0); HEMOGLOBIN 12.9 g/dl (12.0-15.5); LYMPH # 4.4 10^3/uL (1.5-5.0); LYMPH % 43.8 % (24.0-44.0); MEAN CORPUSCULAR HEMOGLOBIN 29.3 pg (27.0-33.0); MEAN CORPUSCULAR HGB CONC 33.2 g/dl (32.0-36.5); MEAN CORPUSCULAR VOLUME 88.2 fl (80.0-96.0); MONO # 0.8 10^3/uL (0.0-0.8); MONO % 8.3 % (2.0-8.0); NEUTROPHILS # 4.5 10^3/uL (1.5-8.5); NEUTROPHILS % 44.1 % (36.0-66.0); PLATELET COUNT, AUTOMATED 400 10^3/uL (150-450); WHITE BLOOD COUNT 10.1 10^3/uL (4.0-10.0)
[2024-02-10 17:35] LABS: LIPASE 69 U/L (12-53)
[2024-02-10 17:37] LABS: ALKALINE PHOSPHATASE 197 U/L (46-116); ALT/SGPT 55 U/L (7.0-40); AST/SGOT 36 U/L (<34); BILIRUBIN,DIRECT < 0.1 MG/DL (<0.4); BILIRUBIN,TOTAL 0.4 MG/DL (0.3-1.2); TOTAL PROTEIN 7.2 G/DL (5.7-8.2)
[2024-02-10] MEDS ORDERED: IBUP-1022 PO (19:06)
[2024-02-10 19:20] VITALS: BP 150/82; TEMP 97.8; O2SAT 99
== END 2024-02-10 19:21 | disposition home or self-care (01) ==
LOC: M ED 16:23
DX: R10.9 Unspecified abdominal pain (principal); R74.01 Elevation of levels of liver transaminase levels; R74.8 Abnormal levels of other serum enzymes; E11.9 Type 2 diabetes mellitus without complications; I10 Essential (primary) hypertension; E78.5 Hyperlipidemia, unspecified; Z86.73 Personal history of transient ischemic attack (TIA), and cerebral infarction without residual deficits; Z87.448 Personal history of other diseases of urinary system; Z79.82 Long term (current) use of aspirin; Z79.4 Long term (current) use of insulin; Z79.899 Other long term (current) drug therapy; Z88.8 Allergy status to other drugs, medicaments and biological substances
CPT/HCPCS: 74177; 80047; 80076; 81001; 83690; 85025; 96374; 99284; J1885; Q9967

== ENCOUNTER 2024-05-12 14:41 | Emergency (ER) | payer MEDICAID, MEDICARE ==
[~2024-05-12] VITALS: Ht 160 cm; Wt 75.4 kg
[~2024-05-12 14:41] MED LIST changes: +DOXY-323 PO; -DOXY-443 PO; +IBUP-1022 PO
[2024-05-12] MEDS: IBUPROFEN 100MG 5ML SUSP UDC DYE FREE PO ONE (17:43)
[2024-05-12] MEDS ORDERED: BENZ200C70 PO (20:22)
[2024-05-12] MEDS ORDERED: VENTAER INH (20:22)
[2024-05-12 20:32] VITALS: BP 138/90; O2SAT 97
[2024-05-12 20:38] VITALS: TEMP 99
== END 2024-05-12 20:41 | disposition home or self-care (01) ==
LOC: M ED 14:41
DX: U07.1 COVID-19 (principal); E11.9 Type 2 diabetes mellitus without complications; I10 Essential (primary) hypertension; E78.5 Hyperlipidemia, unspecified; Z88.8 Allergy status to other drugs, medicaments and biological substances; Z79.51 Long term (current) use of inhaled steroids; Z79.1 Long term (current) use of non-steroidal anti-inflammatories (NSAID); Z79.4 Long term (current) use of insulin; Z79.899 Other long term (current) drug therapy

== ENCOUNTER 2024-05-29 14:12 | Emergency (ER) | payer MEDICARE ==
[~2024-05-29] VITALS: Ht 160 cm; Wt 72.3 kg
[~2024-05-29 14:12] MED LIST changes: +BENZ200C70 PO
[2024-05-29 14:14] VITALS: BP 144/86; TEMP 96.7; O2SAT 99
[2024-05-29] MEDS ORDERED: INSU100I16 (14:28)
== END 2024-05-29 17:23 | disposition left against medical advice (07) ==
LOC: M ED 14:12
DX: Z53.21 Procedure and treatment not carried out due to patient leaving prior to being seen by health care provider (principal)

== ENCOUNTER → 2024-06-11 | Outpatient (REF) | payer MEDICARE, MEDICAID ==
[~2024-06-11] MED LIST changes: +INSU100I16
[2024-06-11 19:12] LABS: BASO # 0.1 10^3/uL (0.0-0.2); BASO % 0.6 % (0.0-1.0); EOS # 0.3 10^3/uL (0.0-0.5); EOS % 2.4 % (0.0-3.0); HEMATOCRIT 39.4 % (36.0-47.0); HEMOGLOBIN 12.7 g/dl (12.0-15.5); LYMPH # 3.6 10^3/uL (1.5-5.0); LYMPH % 33.1 % (24.0-44.0); MEAN CORPUSCULAR HEMOGLOBIN 28.7 pg (27.0-33.0); MEAN CORPUSCULAR HGB CONC 32.2 g/dl (32.0-36.5); MEAN CORPUSCULAR VOLUME 88.9 fl (80.0-96.0); MONO # 1.1 10^3/uL (0.0-0.8); MONO % 9.8 % (2.0-8.0); NEUTROPHILS # 5.8 10^3/uL (1.5-8.5); NEUTROPHILS % 53.6 % (36.0-66.0); PLATELET COUNT, AUTOMATED 252 10^3/uL (150-450); RED BLOOD COUNT 4.43 10^6/uL (4.00-5.40); WHITE BLOOD COUNT 10.9 10^3/uL (4.0-10.0)
[2024-06-11 19:22] LABS: ALKALINE PHOSPHATASE 378 U/L (46-116); ALT/SGPT 299 U/L (7.0-40); AST/SGOT 152 U/L (<34); BILIRUBIN,TOTAL 0.3 MG/DL (0.3-1.2); BLOOD UREA NITROGEN 13 MG/DL (9-23); CALCIUM LEVEL 9.6 MG/DL (8.3-10.6); CARBON DIOXIDE LEVEL 27 MMOL/L (20-31); CHLORIDE LEVEL 105 MMOL/L (98-107); CREATININE FOR GFR 0.67 MG/DL (0.55-1.30); GLOMERULAR FILTRATION RATE > 60.0 (>45); GLUCOSE, FASTING 251 MG/DL (74-106); POTASSIUM SERUM 4.6 MMOL/L (3.5-5.1); SODIUM LEVEL 135 MMOL/L (136-145); TOTAL PROTEIN 7.5 G/DL (5.7-8.2)
[2024-06-11 19:41] LABS: HEPATITIS B SURFACE ANTIGEN NEGATIVE (NEGATIVE)
[2024-06-11 20:02] LABS: HEPATITIS B CORE ANTIBODY IGM NEGATIVE (NEGATIVE); HEPATITIS C VIRUS ABY INDEX < 0.02 INDEX (<0.8)
== END ==
LOC: M LAB REF 16:31
PROVIDERS: ATTEND Family Medicine Addiction Medicine
DX: R74.01 Elevation of levels of liver transaminase levels (principal); Z79.899 Other long term (current) drug therapy

== ENCOUNTER → 2024-06-26 | Outpatient (REF) | payer MEDICARE, MEDICAID ==
[2024-06-26 17:48] LABS: ALBUMIN 3.5 G/DL (3.2-5.2); ALKALINE PHOSPHATASE 226 U/L (46-116); ALT/SGPT 70 U/L (7.0-40); AST/SGOT 48 U/L (<34); BILIRUBIN,TOTAL 0.3 MG/DL (0.3-1.2); BLOOD UREA NITROGEN 8 MG/DL (9-23); CALCIUM LEVEL 9.8 MG/DL (8.3-10.6); CARBON DIOXIDE LEVEL 29 MMOL/L (20-31); CHLORIDE LEVEL 109 MMOL/L (98-107); CREATININE FOR GFR 0.74 MG/DL (0.55-1.30); GLOMERULAR FILTRATION RATE > 60.0 (>45); GLUCOSE, FASTING 150 MG/DL (74-106); POTASSIUM SERUM 4.4 MMOL/L (3.5-5.1); SODIUM LEVEL 143 MMOL/L (136-145)
== END ==
LOC: M LAB REF 16:45
PROVIDERS: ATTEND Family Medicine Addiction Medicine
DX: R74.01 Elevation of levels of liver transaminase levels (principal)

== ENCOUNTER → 2024-08-13 | Outpatient (CLI) | payer MEDICARE, MEDICAID ==
[~2024-08-13] MED LIST changes: -DOXY-323 PO; +DOXY-441 PO
== END ==
LOC: M PLAIMG 06:51
PROVIDERS: ATTEND Student in an Organized Health Care Education/Training Program
DX: M51.360 Other intervertebral disc degeneration, lumbar region with discogenic back pain only (principal); M47.896 Other spondylosis, lumbar region; M51.26 Other intervertebral disc displacement, lumbar region

== ENCOUNTER → 2024-09-26 | Outpatient (REF) | payer MEDICARE, MEDICAID ==
[2024-09-26 14:12] LABS: CREATININE, URINE 100.2 MG/DL; MAU/CREAT RATIO 51.8 MCG/MG (0.0-30.0)
[2024-09-26 14:23] LABS: CHOLESTEROL RISK RATIO 4.6 (<5); HDL CHOLESTEROL 57.5 MG/DL (>40); LDL CHOLESTEROL 178.1 MG/DL (<100); NON-HDL-C 207.5 MG/DL
[2024-09-26 14:26] LABS: THYROID STIMULATING HORMONE 1.924 uIU/ML (0.55-4.78)
[2024-09-26 15:17] LABS: HEMOGLOBIN A1c 12.6 % (4.0-6.0)
== END ==
LOC: M LAB REF 12:05
PROVIDERS: ATTEND Family Medicine Addiction Medicine
DX: E11.9 Type 2 diabetes mellitus without complications (principal)

== ENCOUNTER → 2024-10-20 | Outpatient (REF) | payer MEDICARE, MEDICAID ==
[2024-10-20 14:17] LABS: Trichomonas vaginalis (AMP) NOT DETECTED (NEGATIVE)
[2024-10-20 14:41] LABS: GC DNA AMPLIFICATION NEGATIVE (NEGATIVE)
== END ==
LOC: M SFHCWAGY 12:45
PROVIDERS: ATTEND Nurse Practitioner Family
DX: N73.9 Female pelvic inflammatory disease, unspecified (principal); Z11.3 Encounter for screening for infections with a predominantly sexual mode of transmission; Z72.89 Other problems related to lifestyle

== ENCOUNTER → 2025-04-30 | Outpatient (REF) | payer MEDICARE, MEDICAID ==
[~2025-04-30] MED LIST changes: -PREG25CA; +PREG25CA63
[2025-04-30 15:06] LABS: ALT/SGPT 49 U/L (7.0-40); AST/SGOT 40 U/L (<34); CALCIUM LEVEL 9.3 MG/DL (8.3-10.6); CARBON DIOXIDE LEVEL 25 MMOL/L (20-31); CHLORIDE LEVEL 105 MMOL/L (98-107); CHOLESTEROL LEVEL 230 MG/DL (<200); CHOLESTEROL RISK RATIO 4.51 (<5); CREATININE FOR GFR 0.69 MG/DL (0.55-1.30); GLOMERULAR FILTRATION RATE > 90.0 (>45); LDL CHOLESTEROL 152.5 MG/DL (<100); NON-HDL-C 179.1 MG/DL; POTASSIUM SERUM 4.7 MMOL/L (3.5-5.1); SODIUM LEVEL 143 MMOL/L (136-145); TRIGLYCERIDES LEVEL 133 MG/DL (<150)
[2025-04-30 15:37] LABS: ESTIMATED AVERAGE GLUCOSE 309.0 MG/DL (60-110)
== END ==
LOC: M LAB REF 12:48
PROVIDERS: ATTEND Family Medicine Addiction Medicine
DX: E11.9 Type 2 diabetes mellitus without complications (principal); Z79.4 Long term (current) use of insulin

== ENCOUNTER → 2025-06-17 | Outpatient (REF) | payer MEDICARE, MEDICAID ==
[~2025-06-17] MED LIST changes: -IBUP-1022 PO; +IBUP600T42 PO
[2025-06-17 18:13] LABS: CREATININE, URINE 111.3 MG/DL; MALB URINE SIEMENS 58.0 MG/L; MAU/CREAT RATIO 52.1 MCG/MG (0.0-30.0)
[2025-06-17 18:22] LABS: ALT/SGPT 43 U/L (7.0-40); AST/SGOT 34 U/L (<34); CALCIUM LEVEL 9.8 MG/DL (8.3-10.6); CARBON DIOXIDE LEVEL 28 MMOL/L (20-31); CHLORIDE LEVEL 104 MMOL/L (98-107); CHOLESTEROL LEVEL 234 MG/DL (<200); CHOLESTEROL RISK RATIO 4.09 (<5); CREATININE FOR GFR 0.72 MG/DL (0.55-1.30); GLOMERULAR FILTRATION RATE > 90.0 (>45); LDL CHOLESTEROL 152.4 MG/DL (<100); NON-HDL-C 176.8 MG/DL; POTASSIUM SERUM 4.7 MMOL/L (3.5-5.1); SODIUM LEVEL 142 MMOL/L (136-145); TRIGLYCERIDES LEVEL 122 MG/DL (<150)
[2025-06-17 18:46] LABS: ESTIMATED AVERAGE GLUCOSE 292.0 MG/DL (60-110)
== END ==
LOC: M LAB REF 16:58
PROVIDERS: ATTEND Nurse Practitioner Family
DX: E11.9 Type 2 diabetes mellitus without complications (principal); E78.5 Hyperlipidemia, unspecified; I10 Essential (primary) hypertension

== ENCOUNTER 2025-09-01 10:37 | Observation (INO) | payer MEDICARE, MEDICAID ==
[~2025-09-01] VITALS: Ht 160 cm; Wt 74.1 kg
[2025-09-01] MEDS ORDERED: ISOVUE-370 76% 100 ML VIAL As Ordered ONE (11:03)
[2025-09-01 11:28] LABS: BASO # 0.0 10^3/uL (0.0-0.2); BASO % 0.4 % (0.0-1.0); EOS # 0.1 10^3/uL (0.0-0.5); EOS % 1.2 % (0.0-3.0); LYMPH # 2.9 10^3/uL (1.5-5.0); LYMPH % 30.6 % (24.0-44.0); MONO # 1.0 10^3/uL (0.0-0.8); MONO % 10.4 % (2.0-8.0); NEUTROPHILS # 5.4 10^3/uL (1.5-8.5); NEUTROPHILS % 57.2 % (36.0-66.0); PLATELET COUNT, AUTOMATED 379 10^3/uL (150-450)
[2025-09-01 11:53] LABS: INR 0.82
[2025-09-01 12:46] LABS: ALT/SGPT 46 U/L (7.0-40); AST/SGOT 42 U/L (<34); CALCIUM LEVEL 8.8 MG/DL (8.3-10.6); CARBON DIOXIDE LEVEL 25 MMOL/L (20-31); CHLORIDE LEVEL 107 MMOL/L (98-107); CREATININE FOR GFR 0.67 MG/DL (0.55-1.30); GLOMERULAR FILTRATION RATE > 90.0 (>45); POTASSIUM SERUM 4.7 MMOL/L (3.5-5.1); SODIUM LEVEL 141 MMOL/L (136-145)
[2025-09-01] MEDS ORDERED: DUPI300P INJ (13:02)
[2025-09-01] MEDS ORDERED: ASPI-226 PO (13:02)
[2025-09-01] MEDS ORDERED: IBUP80TA PO (13:02)
[2025-09-01] MEDS ORDERED: INSUH10VL SC (13:02)
[2025-09-01] MEDS ORDERED: LOSA50TA28 PO (13:02)
[2025-09-01] MEDS ORDERED: TRUL10IN INJ (13:02)
[2025-09-01] MEDS ORDERED: HOME MED LIST COMPLETE! XX SCH (13:05)
[2025-09-01] MEDS ORDERED: MOM 30 ML SUSPENSION UDC PO PRN (17:10)
[2025-09-01 17:27] VITALS: BP 142/71; TEMP 98.4; O2SAT 98
[2025-09-01] MEDS ORDERED: GLUCOSE 4 GM CHEW PO PRN (18:00)
[2025-09-01] MEDS ORDERED: GLUCAGON INJ 1 MG VIAL SC PRN (18:00)
[2025-09-01] MEDS ORDERED: ALBUTEROL 90 MCG/ACT 8 GM HFA INHALER INH PRN (18:00)
[2025-09-01] MEDS ORDERED: DEXTROSE 50% 50 ML SYRINGE IV PRN (18:00)
[2025-09-01] MEDS: ASPIRIN 81 MG ENTERIC TABLET PO SCH (18:40)
[2025-09-01] MEDS: VITAMIN D 1,000 INTERNATIONAL UNITS TABLET PO SCH (18:40)
[2025-09-01] MEDS ORDERED: GABA-1490 PO (18:41)
[2025-09-01] MEDS: INSULIN LISPRO (NovoLOG) PER UNIT SC SCH ×2 (18:58→21:58)
[2025-09-01] MEDS: GABAPENTIN 300 MG CAP PO SCH (19:02)
[2025-09-01 20:28] VITALS: BP 156/72; TEMP 98.4; O2SAT 96
[2025-09-01] MEDS: MELOXICAM 7.5 MG TAB PO ONE (21:58)
[2025-09-01 23:35] VITALS: BP 145/65; TEMP 99.3; O2SAT 96
[2025-09-02] MEDS: ACETAMINOPHEN *IV* 1,000 MG in IV 1 EA IV ONE (00:48)
[2025-09-02] MEDS: GABAPENTIN 100 MG CAP PO ONE (00:48)
[2025-09-02] MEDS: CYCLOBENZAPRINE 10 MG TABLET PO ONE (00:48)
[2025-09-02] MEDS: LIDOCAINE 5% PATCH TD ONE (00:49)
[2025-09-02 04:12] VITALS: BP 138/64; TEMP 97.7; O2SAT 100
[2025-09-02 05:16] LABS: BASO # 0.1 10^3/uL (0.0-0.2); BASO % 0.4 % (0.0-1.0); EOS # 0.2 10^3/uL (0.0-0.5); EOS % 1.6 % (0.0-3.0); LYMPH # 4.4 10^3/uL (1.5-5.0); LYMPH % 38.6 % (24.0-44.0); MONO # 1.1 10^3/uL (0.0-0.8); MONO % 9.8 % (2.0-8.0); NEUTROPHILS # 5.6 10^3/uL (1.5-8.5); NEUTROPHILS % 49.3 % (36.0-66.0); PLATELET COUNT, AUTOMATED 413 10^3/uL (150-450)
[2025-09-02 05:28] LABS: ESTIMATED AVERAGE GLUCOSE 203.0 MG/DL (60-110)
[2025-09-02 05:53] LABS: ALT/SGPT 36.0 U/L (7.0-40); AST/SGOT 24.0 U/L (<34); CALCIUM LEVEL 9.1 MG/DL (8.3-10.6); CARBON DIOXIDE LEVEL 27.0 MMOL/L (20-31); CHLORIDE LEVEL 108.0 MMOL/L (98-107); CHOLESTEROL LEVEL 189.0 MG/DL (<200); CHOLESTEROL RISK RATIO 3.82 (<5); CREATININE FOR GFR 0.75 MG/DL (0.55-1.30); GLOMERULAR FILTRATION RATE 90.0 (>45); LDL CHOLESTEROL 120.4 MG/DL (<100); MAGNESIUM LEVEL 1.9 MG/DL (1.8-2.4); NON-HDL-C 139.6 MG/DL; POTASSIUM SERUM 4.3 MMOL/L (3.5-5.1); SODIUM LEVEL 141.0 MMOL/L (136-145); TRIGLYCERIDES LEVEL 96.0 MG/DL (<150)
[2025-09-02 07:55] VITALS: BP 122/72; TEMP 97.8; O2SAT 100
[2025-09-02 07:57] LABS: FREE T4 1.1 NG/DL (0.89-1.76)
[2025-09-02 09:09] VITALS: BP 155/66
[2025-09-02 09:11] VITALS: BP 155/66
[2025-09-02] MEDS: ENOXAPARIN 40 MG/0.4 ML SYRINGE (J1650 PER 10MG) SC SCH (09:11)
[2025-09-02] MEDS: LOSARTAN 50 MG TABLET PO SCH (09:11)
[2025-09-02] MEDS: PERCOCET 5MG/325MG TAB PO PRN (09:13)
[2025-09-02] MEDS: ATORVASTATIN 20 MG TAB PO SCH (09:13)
[2025-09-02] MEDS: CYCLOBENZAPRINE 10 MG TABLET PO SCH (10:39)
[2025-09-02] MEDS ORDERED: ATOR40TA75 PO (10:41)
[2025-09-02] MEDS ORDERED: CYCL10TA20 PO (10:41)
[2025-09-02 11:51] VITALS: BP 132/72; TEMP 97.7; O2SAT 95
[2025-09-02] MEDS: PNEUMOC 21-VAL CONJ-DIP CRM/PF 0.5 ML SYRINGE IM.IMMUN ONE (14:12)
== END 2025-09-02 16:03 | disposition home or self-care (01) ==
LOC: M ED 10:37 → M ED INP 10:38 → M PCU 17:25
PROVIDERS: ADMIT Internal Medicine; ATTEND Internal Medicine
DX: R53.1 Weakness (principal); R10.A2 Flank pain, left side; R51.9 Headache, unspecified; M47.812 Spondylosis without myelopathy or radiculopathy, cervical region; M47.26 Other spondylosis with radiculopathy, lumbar region; R74.01 Elevation of levels of liver transaminase levels; E11.9 Type 2 diabetes mellitus without complications; I10 Essential (primary) hypertension; E78.00 Pure hypercholesterolemia, unspecified; J45.909 Unspecified asthma, uncomplicated; L43.2 Lichenoid drug reaction; Z79.82 Long term (current) use of aspirin; Z79.4 Long term (current) use of insulin; Z79.899 Other long term (current) drug therapy; Z23 Encounter for immunization
CPT/HCPCS: 36415; 70450; 70496; 70498; 70551; 71045; 72141; 72170; 73502; 73552; 73590; 76705; 80047; 80048; 80053; 80061; 80076; 83036; 83735; 84439; 84443; 85025; 85610; 85730; 86850; 86900; 86901; 90684; 93005; 93041; 93306; 94760; 96372; 96374; 97116; 97161; 97165; 97530; 99285; G0009; G0378; J0134; J1650; J1815; Q9967